=== PATIENT | female | born 1970 | race Caucasian/White ===

== ENCOUNTER 2020-06-21 12:00 | Outpatient (REF) | payer BC, SELFPAY ==
--- NOTE | ~2020-06-21 | XR_ITS ---
EXAMINATION: BILATERAL KNEE X-RAY CLINICAL INFORMATION: Pain COMPARISON: None TECHNIQUE: 4 views each knee FINDINGS: Bone alignment is normal. No fracture or dislocation is seen. Joint spaces are normal. There is no joint effusion. XR/XR knee RT 4V IMPRESSION: Normal knees.
--- NOTE | ~2020-06-21 | XR_ITS ---
EXAMINATION: BILATERAL KNEE X-RAY CLINICAL INFORMATION: Pain COMPARISON: None TECHNIQUE: 4 views each knee FINDINGS: Bone alignment is normal. No fracture or dislocation is seen. Joint spaces are normal. There is no joint effusion. XR/XR knee LT 4V IMPRESSION: Normal knees.
== END 2020-06-21 12:01 | disposition home or self-care (01) ==
LOC: HO.HMGCX 12:00
PROVIDERS: PCP Internal Medicine; Visit Provider Nurse Practitioner Family
DX: M25.562 Pain in left knee (principal); M25.561 Pain in right knee
CPT/HCPCS: 73564

== ENCOUNTER 2021-01-04 07:44 | Outpatient (REF) | payer BC, SELFPAY ==
--- NOTE | ~2021-01-04 | MM_ITS ---
EXAMINATION: MM SCREENING DIGITAL BREAST TOMOSYNTHESIS, BILATERAL CLINICAL INFORMATION: Screening. Asymptomatic. The lifetime risk of breast cancer based on the Tyrer-Cuzick Model is 19%. COMPARISON: Mammography: 02/23/2018, 02/13/2017 TECHNIQUE: Digital breast tomosynthesis is performed in both the craniocaudal and mediolateral oblique views along with computer-aided detection (CAD). Synthesized 2D images are generated from the tomosynthesis. Additional bilateral CC and bilateral MLO views are provided. FINDINGS: The breasts are almost entirely fatty (ACR BI-RADS breast composition Category a). Background stromal markings are stable. There are no significant masses, abnormal calcifications, or other abnormalities. The axilla and skin contours are unremarkable. MM/MM tomosynthesis screening BI IMPRESSION: No mammographic evidence of malignancy. ASSESSMENT: BI-RADS 1: Negative RECOMMENDATION: Routine annual mammography screening. This patient's information was entered into a reminder system with a target due date for their next mammogram.
== END 2021-01-04 07:45 | disposition home or self-care (01) ==
LOC: HO.MAMMO 07:44
PROVIDERS: Visit Provider Internal Medicine
DX: Z12.31 Encounter for screening mammogram for malignant neoplasm of breast (principal)
CPT/HCPCS: 77063; 77067

== ENCOUNTER 2021-05-07 12:24 | Outpatient (REF) | payer BC, SELFPAY ==
--- NOTE | ~2021-05-07 | XR_ITS ---
EXAMINATION: XR CHEST CLINICAL INFORMATION: Chronic cough COMPARISON: Previous chest x-ray August 2012 TECHNIQUE: 2 views of the chest were obtained. FINDINGS: No significant abnormality is noted involving the heart, lungs, mediastinum, bony thorax or soft tissues. XR/XR chest 2V IMPRESSION: Unremarkable examination.
[2021-05-07 14:07] LABS: MANUAL DIFF FLAG NO
[2021-05-07 14:13] LABS: Basophils Absolute Auto 0.1 X10*3/uL (0.0-0.2); Basophils Percent Auto 0.6 % (0-2); Eosinophils Absolute Auto 0.1 X10*3/uL (0.0-0.4); Eosinophils Percent Auto 1.4 % (0-4); Hematocrit 41.5 % (37.0-47.0); Hemoglobin 13.3 g/dl (12.0-16.0); Imm Gran Abs Auto 0.04 X10*3/uL (0.00-0.03); Imm Gran Pct Auto 0.5 % (0.0-0.4); Lymphocytes Absolute Auto 2.7 X10*3/uL (1.2-4.9); Lymphocytes Percent Auto 31.6 % (20-40); Mean Corpuscular Hemoglobin 30.1 pg (27.0-33.0); Mean Corpuscular Volume 93.9 fL (80.0-98.0); Mean Platelet Volume 8.9 fL (9.4-12.3); Monocytes Absolute Auto 0.7 X10*3/uL (0.1-1.2); Monocytes Percent Auto 8.5 % (2-11); Neutrophils Absolute Auto 4.8 x10*3/uL (2.0-8.3); Neutrophils Percent Auto 57.4 % (45-73); Platelet Count 385 X10*3/uL (160-400); Red Blood Count 4.42 X10*6/uL (4.20-5.50); Red Cell Distribution Width 12.5 % (11.0-16.0); White Blood Count 8.4 X10*3/uL (4.8-10.8)
== END 2021-05-07 12:25 | disposition home or self-care (01) ==
LOC: HO.HMGCX 12:24
PROVIDERS: PCP Internal Medicine; Visit Provider Internal Medicine
DX: R05.3 Chronic cough (principal); Z86.16 Personal history of COVID-19
CPT/HCPCS: 36415; 71046; 85025

== ENCOUNTER 2022-01-02 06:34 | Outpatient (REF) | payer BC, SELFPAY ==
[2022-01-02 12:52] LABS: Vitamin D 25-OH Total 34.8 ng/mL (>30)
[2022-01-02 13:04] LABS: Alanine Aminotransferase 43 U/L (0-31); Anion Gap 20 (12-20); Aspartate Amino Transferase 35 U/L (5-31); Blood Urea Nitrogen 21 mg/dL (9-16); Calcium 10.5 mg/dL (8.4-10.2); Carbon Dioxide 29 mmol/L (22-29); Chloride 98 mmol/L (96-108); Cholesterol 181 mg/dL; Estimated Glomerular Filt Rate 48; Glucose Fasting 116 mg/dL (60-99); HDL Cholesterol 47 mg/dL; LDL Cholesterol Calculated 96 mg/dl; Potassium 4.9 mmol/L (3.3-5.1); Sodium 142 mmol/L (135-145); Triglycerides 192 mg/dL
== END 2022-01-02 06:35 | disposition home or self-care (01) ==
LOC: HO.HMGCLDS 06:34
PROVIDERS: PCP Internal Medicine; Visit Provider Internal Medicine
DX: Z00.01 Encounter for general adult medical examination with abnormal findings (principal)
CPT/HCPCS: 36415; 80048; 80061; 82306; 84450; 84460

== ENCOUNTER 2022-01-10 07:16 | Outpatient (REF) | payer BC, SELFPAY ==
--- NOTE | ~2022-01-10 | MM_ITS ---
EXAMINATION: MM SCREENING DIGITAL BREAST TOMOSYNTHESIS, BILATERAL CLINICAL INFORMATION: Screening. Asymptomatic. The lifetime risk of breast cancer based on the Tyrer-Cuzick Model is 17%. COMPARISON: Mammography: 01/04/2021, 02/23/2018, 02/13/2017 TECHNIQUE: Digital breast tomosynthesis is performed in both the craniocaudal and mediolateral oblique views along with computer-aided detection (CAD). Synthesized 2D images are generated from the tomosynthesis. Additional bilateral CC and additional bilateral MLO views are provided. FINDINGS: The breasts are almost entirely fatty (ACR BI-RADS breast composition Category a). Background stromal markings appearing normal. Left breast shows no interval mass or developing density. Neither breast shows architectural abnormality or abnormal calcifications. Right breast has new nodule close to skin surface posterior 11:30 position just under 6 mm, possibly dermal lesion. Margins are incompletely defined. Patient will be recalled for additional imaging. MM/MM tomosynthesis screening BI IMPRESSION: Right: -New nodule posterior upper right breast, possibly dermal. Left: -No mammographic evidence of malignancy. ASSESSMENT: BI-RADS 0: Incomplete - Need Additional Imaging Evaluation RECOMMENDATION: 1. Assess for dermal lesion and obtain imaging with dermal marker if applicable. If no dermal lesion, then spot CC and spot ML views. 2. Targeted ultrasound if warranted after review of the additional views. 3. Radiology department staff will contact the patient for additional imaging. This patient's information was entered into a reminder system with a target due date for their next mammogram.
== END 2022-01-10 07:17 | disposition home or self-care (01) ==
LOC: HO.MAMMO 07:16
PROVIDERS: Visit Provider Internal Medicine
DX: Z12.31 Encounter for screening mammogram for malignant neoplasm of breast (principal)
CPT/HCPCS: 77063; 77067

== ENCOUNTER 2022-01-17 07:27 | Outpatient (REF) | payer BC, SELFPAY ==
[2022-01-17 08:01] LABS: Estimated Average Glucose 105 mg/dL; Hemoglobin A1c % 5.3 %
[2022-01-17 08:09] LABS: Anion Gap 15 (12-20); Blood Urea Nitrogen 22 mg/dL (9-16); Calcium 9.7 mg/dL (8.4-10.2); Carbon Dioxide 30 mmol/L (22-29); Chloride 101 mmol/L (96-108); Estimated Glomerular Filt Rate 54; Glucose Fasting 112 mg/dL (60-99); Potassium 4.2 mmol/L (3.3-5.1); Sodium 142 mmol/L (135-145)
== END 2022-01-17 07:28 | disposition home or self-care (01) ==
LOC: HO.LAB 07:27
PROVIDERS: PCP Internal Medicine; Visit Provider Internal Medicine
DX: E83.52 Hypercalcemia (principal); R79.89 Other specified abnormal findings of blood chemistry; R73.01 Impaired fasting glucose
CPT/HCPCS: 36415; 80048; 82330; 83036

== ENCOUNTER 2022-01-23 14:22 | Outpatient (REF) | payer BC, SELFPAY ==
--- NOTE | ~2022-01-23 | MM_ITS ---
EXAMINATION: MM DIAGNOSTIC DIGITAL BREAST TOMOSYNTHESIS, RIGHT US DIAGNOSTIC ULTRASOUND BREAST, RIGHT CLINICAL INFORMATION: Recall from screening for new nodule posterior upper outer right breast possibly dermal lesion. Family history breast cancer sister. TC score 17%. COMPARISON: Mammography: 01/10/2022, 01/04/2021 TECHNIQUE: Digital breast tomosynthesis is performed. 2D images are generated from the tomosynthesis. The following views are obtained: CC and MLO views with dermal marker. Ultrasound right breast is targeted to the palpable nodularity posterior upper outer breast using grayscale imaging and color Doppler without and with harmonics. FINDINGS: The breasts are almost entirely fatty (ACR BI-RADS breast composition Category a). The additional views confirm dermal lesion at site of focal nodular density. On clinical exam, the dermal lesion appears below the skin surface and smaller by palpation than the size noted on imaging. Therefore, ultrasound performed for further characterization. Ultrasound demonstrates the intradermal lesion at site of palpable concern measuring 0.5 cm in size, hypoechoic, circumscribed margins, increased through-transmission of sound, and no associated color flow. There is claw sign with the deep dermis. No visible stalk to skin surface. Results are discussed with the patient at time of visit. The finding on mammography corresponds to an intradermal lesion 0.5 cm size, likely sebaceous cyst/epidermal cyst. If increasing, it would be amenable to simple surgical excision. MM/MM tomosynthesis added views R IMPRESSION: -Intradermal lesion at site of palpable concern measuring 0.5 cm, likely sebaceous cyst/epidermal cyst. ASSESSMENT: BI-RADS 2: Benign RECOMMENDATION: 1. Patient may be managed based on the clinical impression. If the intradermal lesion is increasing, it would be amenable to simple surgical excision. 2. Otherwise, routine annual screening mammography. This patient's information was entered into a reminder system with a target due date for their next mammogram.
== END 2022-01-23 14:23 | disposition home or self-care (01) ==
LOC: HO.MAMMO 14:22
PROVIDERS: PCP Internal Medicine; Visit Provider Internal Medicine
DX: N63.11 Unspecified lump in the right breast, upper outer quadrant (principal)
CPT/HCPCS: 76642; 77061; 77065

== ENCOUNTER 2022-04-02 13:49 | Outpatient (AMB) | payer BC, SELFPAY ==
[2022-04-02 13:59] VITALS: BP 125/70; PULSE 92; O2SAT 98
--- NOTE | 2022-04-02 13:59 | A.OFFPC_ITS ---
Vital Signs 04/02/22 13:59 Weight 278 lb BP 125/70 Blood Pressure Location Rt brachial Position Sitting Pulse 92 Pulse Source Pulse Oximeter Pulse Oximetry (%) 98 Oxygen Delivery Method Room Air Intake Visit Reasons: annual PE. 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 colonoscopy due HPI Details 52-year-old lady here today for physical exam. She has hypertension, currently on lisinopril 5 mg daily and hydrochlorothiazide 12.5 mg daily, blood pressure today is not at goal of less than 130/80.. She takes rosuvastatin 20 mg daily and Norco 3 fatty acid supplements for her dyslipidemia. She is up-to-date with her screening mammogram done move January 2022 and had Cologuard screening done which came back negative June 2021. [facility] Medical History (Updated 04/02/22 @ 14:50 by Bell Reddy MD) Bilateral anterior knee pain COVID-19 vaccine dose declined Dyslipidemia Essential hypertension History of anxiety disorder History of COVID-19 Impaired fasting glucose Mild intermittent asthma Morbid obesity with BMI of 45.0-49.9, adult Persistent cough Surgical History (Updated 04/14/21 @ 00:37 by Bell Reddy MD) History of hemorrhoidectomy History of incision and drainage History of skin cancer History of surgery Family History (Updated 04/14/21 @ 00:40 by Bell Reddy MD) Father Myocardial infarction, Onset Age: 49 Emphysema lung Mother Essential hypertension Hyperlipidemia Sister Breast cancer, Onset Age: 58 Maternal Aunt Breast cancer Social History Housing: House Patient Tobacco Use Status: Never used Tobacco e-Cigarette/Vaping Use: Never Used service: No Current occupational status: employed Female Reproductive History Menstrual History of abnormal pap smear: No Other: last pap smear 03/2021 per pt done bt Dr Char Rodriguez Questionnaire PHQ-9 Over the last 2 weeks, how often have you been bothered by any of the following problems? 1. Little interest or pleasure in doing things: not at all 2. Feeling down, depressed, or hopeless: not at all 3. Trouble falling or staying asleep, or sleeping too much: not at all 4. Feeling tired or having little energy: not at all 5. Poor appetite or overeating: not at all 6. Feeling bad about yourself - or that you are a failure or have let yourself or your family down: not at all 7. Trouble concentrating on things, such as reading the newspaper or watching television: not at all 8. Moving or speaking so slowly that other people could have noticed. Or the opposite - being so fidgety or restless that you have been moving around a lot more than usual: not at all 9. Thoughts that you would be better off or of hurting yourself in some way: not at all Total score: 0 Source: Developed by Drs. Herve Wise, Andra Steinberg, Baldemar Michaud and colleagues, with an educational elham from [employer]. Thrive Questionnaire Date Thrive assessed: 04/02/22 I am a: Patient What is your living situation today?: I have a steady place to live Within the past 12 months, did the food you bought not last and you didn't have the money to get more?: Never true Within the past 12 months, did you worry whether your food would run out before you got money to buy more?: Never true Do you have trouble paying for medicines?: No Do you have trouble getting transportation to medical appointments?: No Do you have trouble paying your heating and electricity bill?: No Do you have trouble taking care of your child, family member or friend?: No Do you have trouble with day-to-day activities such as bathing, preparing meals, shopping, managing finances, etc.?: No Are you currently unemployed and looking for a job?: No Are you interested in more education?: No NATASHA-7 AMB Questionnaire NATASHA-7 Date NATASHA - 7 assessed: 04/02/22 Feeling nervous, anxious, or on edge: 0 = Not at all Not being able to stop or control worryin = Not at all Worrying too much about different things: 0 = Not at all Trouble relaxin = Not at all Being so restless that it is hard to sit still: 0 = Not at all Becoming easily annoyed or irritable: 0 = Not at all Feeling afraid as if something awful might happen: 0 = Not at all Total NATASHA-7 score (0-4 normal; 5-9 mild; 10-14 moderate; 15-21 severe): 0 Source: Developed by Drs. Herve Wise, Andra Steinberg, Baldemar Michaud and colleagues, with an educational elham from [employer]. Physical exam (Primary Care) Vital Signs: Last Vital Signs Pulse 92 04/02/22 13:59 BP 125/70 04/02/22 13:59 Pulse Ox 98 04/02/22 13:59 Oxygen Delivery Method Room Air 04/02/22 13:59 Tobacco/Smoking Status: Tobacco use Status Tobacco use date assessed 04/02/22 04/02/22 14:11 Patient Tobacco Use Status Never used Tobacco 04/02/22 14:00 e-Cigarette/Vaping Use Never Used 04/02/22 14:00 PHQ-9: PHQ-9 Score PHQ-9: Total score 0 04/02/22 14:24 Thrive Assessment: Date of Thrive Assessment Date Thrive assessed 04/02/22 04/02/22 14:11 Office Procedures Flu Questionnaire Does the patient have a severe egg allergy?: No Does the patient have severe life threatening allergies?: No Does the patient have a fever or illness today?: No Has the patient ever had Guillain-Dover Syndrome?: No Has the patient ever had any past reaction to a flu shot?: No Immunizations flu vacc [id number] 6mos up(PF) Performing Provider: Bell Reddy MD Administered by: Caty Santo RN on 04/02/22 14:59 Dose Route Admin Location Lot Number Expiration Date NDC Egg Sorter 0.5 mL IM Right Deltoid [id number] 10/02/22 [id number] [employer] VIS Given Date VIS Provided VIS Publication Date 04/02/22 Single Vaccine 20 Eligibility Eligibility Date Funding Source Not [facility] Eligible 04/02/22 Private Assessment and Plan Assessment & Plan (1) Impaired fasting glucose: Code(s): R73.01 - Impaired fasting glucose (2) Essential hypertension: Code(s): I10 - Essential (primary) hypertension (3) Dyslipidemia: Code(s): E78.5 - Hyperlipidemia, unspecified (4) Morbid obesity with BMI of 45.0-49.9, adult: Code(s): E66.01 - Morbid (severe) obesity due to excess calories; Z68.42 - Body mass index [BMI] 45.0-49.9, adult (5) Mild intermittent asthma: Code(s): J45.20 - Mild intermittent asthma, uncomplicated (6) COVID-19 vaccine dose declined: Code(s): Z28.21 - Immunization not carried out because of patient refusal (7) Annual visit for general adult medical examination with abnormal findings: Code(s): Z00.01 - Encounter for general adult medical examination with abnormal findings Orders: Orders Comprehensive [employer] Panel Fast Today E78.5 - Hyperlipidemia, unspecified, I10 - Essential (primary) hypertension, R73.01 - Impaired fasting glucose Hemoglobin A1c Today E78.5 - Hyperlipidemia, unspecified, I10 - Essential (primary) hypertension, R73.01 - Impaired fasting glucose Lipid Panel Today E78.5 - Hyperlipidemia, unspecified, I10 - Essential (primary) hypertension, R73.01 - Impaired fasting glucose Vitamin D 25-OH Total Today E78.5 - Hyperlipidemia, unspecified, I10 - Essential (primary) hypertension, R73.01 - Impaired fasting glucose Influenza [id number] Immunization Today Z23 - Encounter for immunization Coding Level of Care Code Est Pt Prev Care 40-64y(11537) Diagnoses Impaired fasting glucose R73.01 Essential hypertension I10 Dyslipidemia E78.5 Morbid obesity with BMI of 45.0-49.9, adult E66.01; Z68.42 Mild intermittent asthma J45.20 COVID-19 vaccine dose declined Z28.21 Annual visit for general adult medical examination with abnormal findings Z00.01
== END 2022-04-02 14:57 | disposition home or self-care (01) ==
LOC: HO.HMGC 13:49
PROVIDERS: PCP Internal Medicine; Visit Provider Internal Medicine
DX: R73.01 Impaired fasting glucose (principal); I10 Essential (primary) hypertension; E78.5 Hyperlipidemia, unspecified; E66.01 Morbid (severe) obesity due to excess calories; Z68.42 Body mass index [BMI] 45.0-49.9, adult; J45.20 Mild intermittent asthma, uncomplicated; Z28.21 Immunization not carried out because of patient refusal; Z00.01 Encounter for general adult medical examination with abnormal findings
CPT/HCPCS: 99499

== ENCOUNTER 2022-06-27 07:28 | Outpatient (REF) | payer OTHER, SELFPAY ==
[2022-06-27 08:27] LABS: Estimated Average Glucose 105 mg/dL; Hemoglobin A1c % 5.3 %
[2022-06-27 08:57] LABS: Alanine Aminotransferase 28 U/L (0-31); Albumin Level 4.5 g/dL (3.5-5.0); Alkaline Phosphatase 59 U/L (39-117); Anion Gap 15 (12-20); Aspartate Amino Transferase 24 U/L (5-31); Bilirubin Total 0.8 mg/dL (0.0-1.0); Blood Urea Nitrogen 22 mg/dL (9-16); Carbon Dioxide 29 mmol/L (22-29); Chloride 104 mmol/L (96-108); Cholesterol 165 mg/dL; Estimated Glomerular Filt Rate > 60; Glucose Fasting 109 mg/dL (60-99); HDL Cholesterol 48 mg/dL; LDL Cholesterol Calculated 93 mg/dl; Potassium 4.5 mmol/L (3.3-5.1); Sodium 143 mmol/L (135-145); Total Protein 7.1 g/dL (6.5-8.0); Triglycerides 120 mg/dL
[2022-06-27 09:02] LABS: Vitamin D 25-OH Total 37.4 ng/mL (>30)
== END 2022-06-27 07:29 | disposition home or self-care (01) ==
LOC: HO.LAB 07:28
PROVIDERS: PCP Internal Medicine; Visit Provider Internal Medicine
DX: I10 Essential (primary) hypertension (principal); R73.01 Impaired fasting glucose; E78.5 Hyperlipidemia, unspecified
CPT/HCPCS: 36415; 80053; 80061; 82306; 83036

== ENCOUNTER 2022-09-01 13:37 | Outpatient (AMB) | payer OTHER, SELFPAY ==
--- NOTE | 2022-09-01 13:38 | A.OFFPC_ITS ---
Vital Signs 09/01/22 13:44 Height 5 ft 5 in Weight 271 lb BMI 45.1 BP 120/68 Blood Pressure Location Rt brachial Position Sitting Pulse 97 Pulse Source Pulse Oximeter Pulse Oximetry (%) 96 Oxygen Delivery Method Room Air Intake Visit Reasons: Recheck breast lump/infection Intake Note: Pt is here today for a recheck Rt breast abscess/infection: Pt was seen on 08/29 thru our [place] Rt breast was marked and the redness got larger Allergies No Known Allergies Allergy (Verified 05/30/23 18:44) Medication List - Last Reconciled 09/01/22 by Bell Reddy MD albuterol sulfate 90 mcg/actuation (ProAir HFA) 2 puffs inhalation Q6H PRN cephalexin 500 mg PO QID 7 days hydrochlorothiazide 12.5 mg PO QAM lisinopril 5 mg PO DAILY omega-3 fatty acids (Fish Oil Concentrate) 1,000 mg PO DAILY rosuvastatin 20 mg PO DAILY Tobacco use date assessed: 09/01/22 HPI Recheck breast lump/infection HPI Details 52-year-old lady here today for follow-u p regarding right breast abscess, was seen at the walk-in August 29 and started on cephalexin 500 mg every 6 hours for 7 days. Patient states that abscess still present, slightly smaller in size, but still painful to touch. Denies any accompanying fever, up-to-date with her screening mammogram [facility] Medical History COVID-19 vaccine dose declined Impaired fasting glucose Persistent cough History of COVID-19 History of anxiety disorder Mild intermittent asthma Morbid obesity with BMI of 45.0-49.9, adult Dyslipidemia Essential hypertension Bilateral anterior knee pain Surgical History History of skin cancer History of incision and drainage History of hemorrhoidectomy History of surgery Family History Father Myocardial infarction, Onset Age: 49 Emphysema lung Mother Essential hypertension Hyperlipidemia Sister Breast cancer, Onset Age: 58 Maternal Aunt Breast cancer Social History Housing: House Patient Tobacco Use Status: Never used Tobacco e-Cigarette/Vaping Use: Never Used service: No Current occupational status: employed Cognitive needs: No Hearing needs: No Vision needs: No Questionnaire Thrive Questionnaire Date Thrive assessed: 04/02/22 AUDIT C Alcohol Use Questionnaire (AUDIT-C) 1. How often do you have a drink containing alcohol?: Never Total Score: 0 NATASHA-7 AMB Questionnaire NATASHA-7 Date NATASHA - 7 assessed: 04/02/22 Source: Developed by Drs. Herve Wise, Andra Steinberg, Baldemar Michaud and colleagues, with an educational elham from [employer]. Review of Systems Const Denies fever(s) ENT Denies nasal congestion and Denies sore throat Card Denies chest pain, Denies lightheadedness, Denies palpitations and Denies dyspnea Resp Denies chest congestion, Denies cough, Denies dyspnea and Denies wheezing GI Denies abdominal pain, Denies change in bowel habits and Denies heartburn Musc Reports no additional complaints Skin/Breast Reports as per HPI Endo Denies polydipsia, Denies polyuria and Denies palpitations Hong/Lymph Denies easy bruising Aller/Immun Denies seasonal rhinorrhea and Denies wheezing Physical exam (Primary Care) Vital Signs: Last Vital Signs Pulse 97 09/01/22 13:44 BP 120/68 09/01/22 13:44 Pulse Ox 96 09/01/22 13:44 Oxygen Delivery Method Room Air 09/01/22 13:44 BMI result Body Mass Index 45.1 Tobacco/Smoking Status: Tobacco use Status Tobacco use date assessed 09/01/22 09/01/22 13:41 Patient Tobacco Use Status Never used Tobacco 09/01/22 13:38 e-Cigarette/Vaping Use Never Used 09/01/22 13:38 Thrive Assessment: Date of Thrive Assessment Date Thrive assessed 04/02/22 09/01/22 13:38 Const General: no acute distress and alert Neck Neck: Yes full ROM and Yes no lymphadenopathy Chest Other: Slightly raised erythematous lesion on the upper outer quadrant of the skin of the right breast whi measures approximately 4 x 3 cm. Resp Effort & Inspection: normal respiratory effort and able to speak in complete sentences Auscultation: clear to auscultation bilaterally Cardio Jugular venous distension: no JVD Rate: regular rate Rhythm: regular rhythm Heart sounds: S1 normal heart sound present and S2 normal heart sound present Assessment and Plan Assessment & Plan (1) Abscess of right breast unrelated to or : Code(s): N61.1 - Abscess of the breast and nipple Plan: Referred to general surgery for further evaluation and management Orders: Referrals General Surgery Referral N61.1 - Abscess of the breast and nipple Medications: Refilled lisinopril 5 mg PO DAILY 90 tabs 3RF Coding Level of Care Code Est Pt Level 3 (53588) Diagnoses Abscess of right breast unrelated to or N61.1
[2022-09-01 13:44] VITALS: BP 120/68; PULSE 97; O2SAT 96; BMI 45.1
== END 2022-09-01 14:18 | disposition home or self-care (01) ==
LOC: HO.HMGC 13:37
PROVIDERS: PCP Internal Medicine; Visit Provider Internal Medicine
DX: N61.1 Abscess of the breast and nipple (principal)
CPT/HCPCS: 99499

== ENCOUNTER → 2022-09-08 11:07 | Outpatient (BNVA) | payer OTHER, SELFPAY | PROVIDERS: PCP Internal Medicine; Referring Provider Internal Medicine; Visit Provider Surgery | DX: N61.1 Abscess of the breast and nipple (principal) | CPT/HCPCS: 10060; 10061 ==

== ENCOUNTER 2022-09-08 12:15 | Outpatient (REF) | payer OTHER, SELFPAY | END 2022-09-08 12:16 | disposition home or self-care (01) | LOC: HO.LNP 12:15 | PROVIDERS: Visit Provider Surgery | DX: N61.1 Abscess of the breast and nipple (principal); Z79.899 Other long term (current) drug therapy | CPT/HCPCS: 10060; 87070; 87077; 87186; 87205 ==

== ENCOUNTER → 2022-09-09 08:25 | Outpatient (BNVA) | payer OTHER, SELFPAY | PROVIDERS: PCP Internal Medicine; Visit Provider Surgery ==

== ENCOUNTER → 2022-09-10 08:28 | Outpatient (BNVA) | payer OTHER, SELFPAY | PROVIDERS: PCP Internal Medicine; Visit Provider Surgery ==

== ENCOUNTER → 2022-09-11 08:12 | Outpatient (BNVA) | payer OTHER, SELFPAY | PROVIDERS: PCP Internal Medicine; Visit Provider Surgery ==

== ENCOUNTER → 2022-09-18 08:03 | Outpatient (BNVA) | payer OTHER, SELFPAY | PROVIDERS: PCP Internal Medicine; Visit Provider Surgery | DX: N61.1 Abscess of the breast and nipple (principal) ==

== ENCOUNTER 2022-12-08 08:53 | Outpatient (AMB) | payer OTHER, SELFPAY ==
[2022-12-08 09:00] VITALS: BP 146/74; PULSE 97; BMI 45.1
--- NOTE | 2022-12-08 09:00 | MHC.OFFVIS ---
Intake Vital Signs 12/08/22 09:00 Height 5 ft 5 in Weight 271 lb BMI 45.1 BP 146/74 H Blood Pressure Location Rt brachial Position Sitting Pulse 97 Intake Visit Reasons: excision cyst right breast Intake Note: Patient here for exc of cyst on Rt breast. 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 She had 90 of all very large complex abscess here several months ago. Now presents for elective excision. Risks, benefits and alternatives excision of right upper outer breast soft tissue sebaceous cyst/mass were reviewed with the patient and included but not limited to bleeding, infection, recurrence, numbness, pain, scarring the patient wished to proceed. All questions were answered. REPLACED BY [facility] Medical History Bilateral anterior knee pain COVID-19 vaccine dose declined Dyslipidemia Essential hypertension History of anxiety disorder History of COVID-19 Impaired fasting glucose Mild intermittent asthma Morbid obesity with BMI of 45.0-49.9, adult Persistent cough Surgical History History of hemorrhoidectomy History of incision and drainage History of skin cancer History of surgery Family History Father Myocardial infarction, Onset Age: 49 Emphysema lung Mother Essential hypertension Hyperlipidemia Sister Breast cancer, Onset Age: 58 Maternal Aunt Breast cancer Social History Housing: House Patient Tobacco Use Status: Never used Tobacco e-Cigarette/Vaping Use: Never Used service: No Current occupational status: employed Cognitive needs: No Hearing needs: No Vision needs: No Physical Exam Vital Signs: Last Vital Signs Pulse 97 12/08/22 09:00 BP 146/74 H 12/08/22 09:00 BMI result Body Mass Index 45.1 Office Procedures Excision Details: After appropriate positioning, patient under 1% lidocaine and Betadine prep of the upper outer quadrant right breast area. A transverse by elliptical incision encompassing the prior scar from the previous incision drainage site of the infected sebaceous cyst was uneventfully performed. Specimen measured approximately 3 x 3 cm. Specimen sent to pathology. Wound was irrigated, secured hemostasis, and closed using running subcuticular 3-0 Vicryl suture followed by Steri-Strips and sterile dressings. Patient tolerated procedure well. [id number]-juzge/arms/legs 2.1-3cm Procedure code (CPT) selection complete Office Meds lidocaine-epinephrine 1 %-1:100,000 Performing Provider: Kavin Kaplan MD Administered by: Kavin Kalpan MD on 12/08/22 09:29 Dose Route Admin Location Lot Number Expiration Date NDC Roller Painter 20 mL Infiltration Assessment & Plan Assessment & Plan (1) Abscess of right breast unrelated to or : Comment: Patient has been given local instructions as well as dressing changes which will be performed to the office. She will be given antibiotics, analgesics, and will see me as directed or p.r.n. Code(s): N61.1 - Abscess of the breast and nipple (2) Sebaceous cyst: Code(s): L72.3 - Sebaceous cyst Plan Patient has been given local instructions, and will follow-up p.r.n.. Orders: Orders AMB Excision Today N61.1 - Abscess of the breast and nipple Medications: New hydrocodone-acetaminophen 5-325 mg Partial Fill upon patient request. 1 tab PO Q4-6H PRN 14 tabs 0RF pain Coding Level of Care Code Est Pt Level 4 (76846) Global (62945) Diagnoses Abscess of right breast unrelated to or N61.1 Sebaceous cyst L72.3 CPT Codes Trunk/Arms/Legs - CPT: 55831-amsfb/arms/legs 2.1-3cm ([id number])
== END 2022-12-08 09:38 | disposition home or self-care (01) ==
PROVIDERS: PCP Internal Medicine; Visit Provider Surgery
DX: N61.1 Abscess of the breast and nipple (principal); L72.3 Sebaceous cyst; Z48.89 Encounter for other specified surgical aftercare
CPT/HCPCS: 11403; 99214

== ENCOUNTER 2022-12-08 08:53 | Outpatient (REF) | payer OTHER, SELFPAY | END 2022-12-08 08:54 | disposition home or self-care (01) | LOC: HO.LNP 08:53 | PROVIDERS: PCP Internal Medicine; Visit Provider Surgery | DX: L72.3 Sebaceous cyst (principal); Z79.899 Other long term (current) drug therapy | CPT/HCPCS: 11403; 88304; 88305 ==

== ENCOUNTER 2022-12-15 09:03 | Outpatient (AMB) | payer OTHER, SELFPAY ==
--- NOTE | 2022-12-15 09:15 | A.OFFVIS_ITS ---
Intake Vital Signs 12/15/22 09:20 Height 5 ft 5 in Weight 271 lb BMI 45.1 BP 135/72 Blood Pressure Location Rt brachial Position Sitting Pulse 89 Intake Visit Reasons: s/p cyst right breast Intake Note: Patient here s/p exc cyst on sup Rt breast. Patient reports some bruising. Site healing well. Denies pain, oozing or itch. Wool Shearer Required: No Accompanied by: Self / Same As Patient Allergies No Known Allergies Allergy (Verified 12/15/22 09:21) HPI HPI Comments History of Present Illness Details Patient presents for follow-up. She has no wound issues or complaints. Pathology is benign. [facility] Medical History COVID-19 vaccine dose declined Impaired fasting glucose Persistent cough History of COVID-19 History of anxiety disorder Mild intermittent asthma Morbid obesity with BMI of 45.0-49.9, adult Dyslipidemia Essential hypertension Bilateral anterior knee pain Surgical History History of skin cancer History of incision and drainage History of hemorrhoidectomy History of surgery Family History Father Myocardial infarction, Onset Age: 49 Emphysema lung Mother Essential hypertension Hyperlipidemia Sister Breast cancer, Onset Age: 58 Maternal Aunt Breast cancer Social History Housing: House Patient Tobacco Use Status: Never used Tobacco e-Cigarette/Vaping Use: Never Used service: No Current occupational status: employed Cognitive needs: No Hearing needs: No Vision needs: No Physical Exam Vital Signs: Last Vital Signs Pulse 89 12/15/22 09:20 BP 135/72 12/15/22 09:20 BMI result Body Mass Index 45.1 Chest Other: Wound is clean dry and intact healing uneventfully. Assessment & Plan Assessment & Plan (1) Sebaceous cyst: Code(s): L72.3 - Sebaceous cyst Plan Patient has been given local instructions, and will follow-up p.r.n.. She gets mammograms annually in January and is followed by her medical doctor who does annual breast exams. She is also encouraged to do self-breast exams. Coding Level of Care Code Global (75992) Diagnoses Sebaceous cyst L72.3
[2022-12-15 09:20] VITALS: BP 135/72; PULSE 89; BMI 45.1
== END 2022-12-15 09:28 | disposition home or self-care (01) ==
PROVIDERS: PCP Internal Medicine; Visit Provider Surgery
DX: L72.3 Sebaceous cyst (principal)
CPT/HCPCS: 99024

== ENCOUNTER → 2022-12-15 09:03 | Outpatient (BNVA) | payer OTHER, SELFPAY | PROVIDERS: PCP Internal Medicine; Visit Provider Surgery | DX: N61.1 Abscess of the breast and nipple (principal) ==

== ENCOUNTER 2023-01-16 07:27 | Outpatient (REF) | payer OTHER, SELFPAY | END 2023-01-16 07:28 | disposition home or self-care (01) | LOC: HO.MAMMO 07:27 | PROVIDERS: PCP Internal Medicine; Visit Provider Internal Medicine | DX: Z12.31 Encounter for screening mammogram for malignant neoplasm of breast (principal) | CPT/HCPCS: 77063; 77067 ==

== ENCOUNTER → 2023-01-16 07:30 | Outpatient (BNV) | payer OTHER, SELFPAY | PROVIDERS: PCP Internal Medicine; Visit Provider Radiology Diagnostic Radiology | DX: Z12.31 Encounter for screening mammogram for malignant neoplasm of breast (principal) | CPT/HCPCS: 77063; 77067 ==

== ENCOUNTER 2023-12-08 08:45 | Outpatient (AMB) | payer OTHER, SELFPAY ==
--- NOTE | 2023-12-08 08:53 | A.OFFVIS_ITS ---
Vital Signs 12/08/23 08:54 Height 5 ft 5 in Weight 279 lb 2 oz BMI 46.4 BP 122/80 Blood Pressure Location Rt brachial Position Sitting Pulse 92 Pulse Source Pulse Oximeter Pulse Oximetry (%) 97 Oxygen Delivery Method Room Air Intake Visit Reasons: PE Allergies No Known Allergies Allergy (Verified 12/08/23 08:56) [facility] History COVID-19 vaccine dose declined Impaired fasting glucose Persistent cough History of COVID-19 History of anxiety disorder Mild intermittent asthma Morbid obesity with BMI of 45.0-49.9, adult Dyslipidemia Essential hypertension Bilateral anterior knee pain Surgical History History of skin cancer History of incision and drainage History of hemorrhoidectomy History of surgery Family History Father Myocardial infarction, Onset Age: 49 Emphysema lung Mother Essential hypertension Hyperlipidemia Sister Breast cancer, Onset Age: 58 Maternal Aunt Breast cancer Social History Housing: House Patient Tobacco Use Status: Never used Tobacco e-Cigarette/Vaping Use: Never Used service: No Current occupational status: employed Cognitive needs: No Hearing needs: No Vision needs: No Female Reproductive History Menstrual Date of Mammogram: 01/16/23 History of abnormal mammogram: No Coding
[2023-12-08 08:54] VITALS: BP 122/80; PULSE 92; O2SAT 97; BMI 46.4
--- NOTE | 2023-12-08 08:59 | MHC.PC.OV ---
Vital Signs 12/08/23 08:54 Height 5 ft 5 in Weight 279 lb 2 oz BMI 46.4 BP 122/80 Blood Pressure Location Rt brachial Position Sitting Pulse 92 Pulse Source Pulse Oximeter Pulse Oximetry (%) 97 Oxygen Delivery Method Room Air Intake Visit Reasons: PE Allergies No Known Allergies Allergy (Verified 12/08/23 09:37) Medication List - Last Reconciled 12/08/23 by Bell Reddy MD albuterol sulfate 90 mcg/actuation 2 puffs inhalation Q6H PRN hydrochlorothiazide 12.5 mg PO QAM lisinopril 5 mg PO DAILY multivit with min-folic acid 80 mcg (Centrum Adult 50 Plus) 1 tab PO DAILY omega-3 fatty acids (Fish Oil Concentrate) 1,000 mg PO DAILY rosuvastatin 20 mg PO DAILY Tobacco use date assessed: 09/01/22 HPI PE HPI Details 53-year-old lady with past medical history significant for hypertension, hyperlipidemia, mild intermittent asthma, impaired fasting glucose, and obesity, here today for a physical exam. She is up-to-date with her cervical cancer screening and pelvic exam, sees Dr. Char Rodriguez. She is up-to-date with her screening mammogram , due again this January, already has an appointment set up. Had a negative Cologuard test done in 2021. Has been having intermittent episodes of wheezing and bronchospasm usually when she has a cold or when she does a lot of dusting. Needs a refill on her ProAir inhaler which she uses as needed Blood pressure stable and controlled on present treatment, has been compliant with taking her medications, but not so much with diet and does not get any regular exercise. [facility] Medical History COVID-19 vaccine dose declined Impaired fasting glucose History of COVID-19 History of anxiety disorder Mild intermittent asthma Morbid obesity with BMI of 45.0-49.9, adult Dyslipidemia Essential hypertension Surgical History History of skin cancer History of incision and drainage History of hemorrhoidectomy History of surgery Family History Father Myocardial infarction, Onset Age: 49 Emphysema lung Mother Essential hypertension Hyperlipidemia Sister Breast cancer, Onset Age: 58 Maternal Aunt Breast cancer Social History Housing: House Patient Tobacco Use Status: Never used Tobacco e-Cigarette/Vaping Use: Never Used service: No Current occupational status: employed Cognitive needs: No Hearing needs: No Vision needs: No Questionnaire PHQ-9 Over the last 2 weeks, how often have you been bothered by any of the following problems? 1. Little interest or pleasure in doing things: not at all 2. Feeling down, depressed, or hopeless: not at all 3. Trouble falling or staying asleep, or sleeping too much: not at all 4. Feeling tired or having little energy: not at all 5. Poor appetite or overeating: not at all 6. Feeling bad about yourself - or that you are a failure or have let yourself or your family down: not at all 7. Trouble concentrating on things, such as reading the newspaper or watching television: not at all 8. Moving or speaking so slowly that other people could have noticed. Or the opposite - being so fidgety or restless that you have been moving around a lot more than usual: not at all 9. Thoughts that you would be better off or of hurting yourself in some way: not at all Total score: 0 Depression Screening Interpretation: Negative Depression Screening Done: Yes 66827 - PHQ-9 Billing: Yes Source: Developed by Drs. Herve Wise, Andra Steinberg, Baldemar Michaud and colleagues, with an educational elham from [employer]. Thrive Questionnaire Date Thrive assessed: 12/08/23 I am a: Patient What is your living situation today?: I have a steady place to live Within the past 12 months, did the food you bought not last and you didn't have the money to get more?: I choose not to answer this question Within the past 12 months, did you worry whether your food would run out before you got money to buy more?: I choose not to answer this question Do you have trouble paying for medicines?: No Do you have trouble getting transportation to medical appointments?: No Do you have trouble paying your heating and electricity bill?: No Do you have trouble taking care of your child, family member or friend?: No Do you have trouble with day-to-day activities such as bathing, preparing meals, shopping, managing finances, etc.?: No Are you currently unemployed and looking for a job?: No Are you interested in more education?: No Please select the resources that you would like help with: None Currently or been in a relationship where the following occur: I choose not to answer THRIVE Score: 0 AUDIT C Alcohol Use Questionnaire (AUDIT-C) 1. How often do you have a drink containing alcohol?: Never 3. How often do you have six or more drinks on one occasion?: Never Total Score: 0 NATASHA-7 AMB Questionnaire NATASHA-7 Date NATASHA - 7 assessed: 12/08/23 Feeling nervous, anxious, or on edge: 0 = Not at all Not being able to stop or control worryin = Not at all Worrying too much about different things: 0 = Not at all Trouble relaxin = Not at all Being so restless that it is hard to sit still: 0 = Not at all Becoming easily annoyed or irritable: 0 = Not at all Feeling afraid as if something awful might happen: 0 = Not at all Total NATASHA-7 score (0-4 normal; 5-9 mild; 10-14 moderate; 15-21 severe): 0 Source: Developed by Drs. Herve Wise, Andra Steinberg, Baldemar Michaud and colleagues, with an educational elham from [employer]. NATASHA-7 Assessment Billing NATASHA-7 Assessment Tool: NATASHA-7 Assessment 72982 Review of Systems Const Reports no additional complaints and Reports weight gain Eyes Details: Up-to-date with her eye exam, goes to [facility] Reports no additional complaints ENT Denies nasal congestion and Denies sore throat Card Denies chest pain, Denies lightheadedness, Denies palpitations and Denies dyspnea Resp Denies chest congestion, Denies cough and Denies dyspnea GI Denies abdominal pain, Denies change in bowel habits and Denies heartburn Denies nipple discharge Musc Reports no additional complaints Skin/Breast Denies breast pain, Denies breast mass, Denies change in breast shape, Denies nipple discharge and Denies rash Neuro Reports no additional complaints Psych Reports no additional complaints Endo Denies polydipsia, Denies polyuria and Denies palpitations Hong/Lymph Denies easy bruising Aller/Immun Reports as per HPI and Denies seasonal rhinorrhea Physical exam (Primary Care) Vital Signs: Last Vital Signs Pulse 92 12/08/23 08:54 BP 122/80 12/08/23 08:54 Pulse Ox 97 12/08/23 08:54 Oxygen Delivery Method Room Air 12/08/23 08:54 BMI result Body Mass Index 46.4 Tobacco/Smoking Status: Tobacco use Status Tobacco use date assessed 09/01/22 12/08/23 09:00 Patient Tobacco Use Status Never used Tobacco 12/08/23 09:00 e-Cigarette/Vaping Use Never Used 12/08/23 09:00 PHQ-9: PHQ-9 Score PHQ-9: Total score 0 12/08/23 09:40 Depression Screening Interpretation: Negative Thrive Assessment: Date of Thrive Assessment Date Thrive assessed 12/08/23 12/08/23 09:00 Currently or been in a relationship where the following occur: I choose not to answer Advance Care Planning discussion: Completed/Scanned Date of discussion: 12/08/23 Who was present: Patient Forms completed: Health Care Proxy Time spent: 16-45 minutes Actual minutes spent: 16 Const General: no acute distress, alert and Physically active Nutritional Appearance: obese Orientation/consciousness: patient oriented x3 HENMT Head: Yes normocephalic Ears: hearing grossly normal bilaterally and EAC's normal General nose exam: Normal external nose present Face and sinus: Yes face symmetric Mouth: Normal oral and palatal mucosa present, oropharynx normal and moist mucous membranes Eyes General: appearance normal, both eyes and all related structures Conjunctivae: conjunctivae normal Sclerae: sclerae normal Pupils: Equal, round and reactive pupils present EOM: EOMs intact bilaterally Neck Other: Nonpalpable thyroid Neck: Yes full ROM and Yes no lymphadenopathy Chest Other: Superficial erythematous linear lesion on upper aspect of left measuring approximately 0.5 cm Chest palpation & inspection: normal inspection of the chest and normal palpation of entire chest wall Breast/axilla palpation: normal palpation of the breasts Resp Effort & Inspection: normal respiratory effort and able to speak in complete sentences Auscultation: clear to auscultation bilaterally Cardio Jugular venous distension: no JVD Rate: regular rate Rhythm: regular rhythm Heart sounds: S1 normal heart sound present and S2 normal heart sound present GI Inspection: Yes obesity Palpation (GI): Soft to palpation, nontender, no guarding and no masses Auscultation: normal bowel sounds Other: Currently sees Dr. Char Rodriguez General: Yes Bimanual renal exam normal bilaterally and Yes no CVA tenderness Back/Spine/Pelvis Back: no CVA tenderness and No back tenderness Skin General skin exam: no rashes or lesions noted Neuro General: patient oriented x3 Cranial nerves: Yes Equal, round and reactive pupils present Extrem General: Yes normal to inspection, Yes full ROM, Yes no joint enlargement, Yes no pedal edema, Yes no calf tenderness and Yes normal gait Psych Appearance: grossly normal and well kempt Mental Status: mental status grossly normal Speech and movement: Normal speech and movement present Affect: normal affect Attitude: cooperative Thought process: Normal thought process present Thought content: Normal thought content present Assessment and Plan Assessment & Plan (1) Annual visit for general adult medical examination with abnormal findings: Code(s): Z00.01 - Encounter for general adult medical examination with abnormal findings Plan: Will check appropriate labs. Recommended dental visit every 6 months and regular eye exams, at least every 2 years. Take adequate calcium in diet and vitamin-D 3 at 2000 IU per cap once a day, in addition to weight-bearing exercises to help maintain good muscle tone and weight control. Instructed to do self-breast exam, and recommended to get yearly mammogram, already has an appointment set up for her mammogram next month. Sees Dr. Char Rodriguez for her routine pelvic exam and cervical cancer screening. Up-to-date with her colon cancer screening, had a negative Cologuard done in 2021 due again in 2024. (2) Essential hypertension: Code(s): I10 - Essential (primary) hypertension Plan: Blood pressure at goal of less than 130/80. Continue with current dose of lisinopril hydrochlorothiazide. Reinforced importance of following a low sodium diet, getting regular exercise, and lowering stress levels. (3) Dyslipidemia: Code(s): E78.5 - Hyperlipidemia, unspecified Plan: Fasting lipid panel ordered today. Continue with low-cholesterol diet, getting regular exercise at least 30 minutes 3 to 4 times a week, continued with rosuvastatin 20 mg daily (4) Morbid obesity with BMI of 45.0-49.9, adult: Code(s): E66.01 - Morbid (severe) obesity due to excess calories; Z68.42 - Body mass index [BMI] 45.0-49.9, adult Plan: Your BMI is above the ideal range.Discussed need to increase activity and weight reduction. Recommended focusing on improving health instead of dieting. Mediterranean diet is a healthy diet that helps, limit food high in fat, sugar, and calories. Eat slowly, pay attention to portion sizes, plan your meals ahead of time, start regular physical activity, at least 150 minutes of moderate intensity exercise, or 90 minutes per week of vigorous exercise. Keeping a food diary, tracking what you eat and your physical activity can help assess what improvements you can make. There are many health problems associated with being overweight/obese, so it is important to improve your diet and exercise. There are medications and surgical options available, but Lifestyle changes are the 1st step. (5) Mild intermittent asthma: Code(s): J45.20 - Mild intermittent asthma, uncomplicated Qualifiers: Asthma complication type: uncomplicated Qualified Code(s): J45.20 - Mild intermittent asthma, uncomplicated Plan: pneumococcal vaccination, flu vaccine and COVID vaccination recommended but patient declined. Refill prescription sent for albuterol inhaler, to use as directed. (6) Impaired fasting glucose: Code(s): R73.01 - Impaired fasting glucose Plan: Your previous fasting blood sugars were elevated above 100 mg/dL. Impaired glucose metabolism increases the risk for developing diabetes mellitus type 2, as well as heart attack and stroke later on. Lifestyle changes that promotes weight loss, healthy eating habits, and regular exercise are important, and can prevent the progression to diabetes (7) COVID-19 vaccine dose declined: Code(s): Z28.21 - Immunization not carried out because of patient refusal (8) Advanced directives, counseling/discussion: Code(s): Z71.89 - Other specified counseling Plan: Initiated the conversation about Advanced Directives. Advanced Directives help patients prepare for current and future decisions about their medical treatment and place of care. Discussed with patient that it is a process where a patients current condition and prognosis are reviewed, their wishes for information regarding their illness are elicited, and likely medical dilemmas are presented and options discussed. Healthcare proxy form completed today. The form can be amended as needed, reviewed yearly and make changes as needed Orders: Orders Hemoglobin A1c Today E66.01 - Morbid (severe) obesity due to excess calories, E78.5 - Hyperlipidemia, unspecified, I10 - Essential (primary) hypertension, J45.20 - Mild intermittent asthma, uncomplicated, R73.01 - Impaired fasting glucose, Z00.01 - Encounter for general adult medical examination with abnormal findings, Z68.42 - Body mass index [BMI] 45.0-49.9, adult Alanine Aminotransferase Today E66.01 - Morbid (severe) obesity due to excess calories, E78.5 - Hyperlipidemia, unspecified, I10 - Essential (primary) hypertension, J45.20 - Mild intermittent asthma, uncomplicated, R73.01 - Impaired fasting glucose, Z00.01 - Encounter for general adult medical examination with abnormal findings, Z68.42 - Body mass index [BMI] 45.0-49.9, adult Aspartate Amino Transferase Today E66.01 - Morbid (severe) obesity due to excess calories, E78.5 - Hyperlipidemia, unspecified, I10 - Essential (primary) hypertension, J45.20 - Mild intermittent asthma, uncomplicated, R73.01 - Impaired fasting glucose, Z00.01 - Encounter for general adult medical examination with abnormal findings, Z68.42 - Body mass index [BMI] 45.0-49.9, adult Basic Metabolic Panel Fasting Today E66.01 - Morbid (severe) obesity due to excess calories, E78.5 - Hyperlipidemia, unspecified, I10 - Essential (primary) hypertension, J45.20 - Mild intermittent asthma, uncomplicated, R73.01 - Impaired fasting glucose, Z00.01 - Encounter for general adult medical examination with abnormal findings, Z68.42 - Body mass index [BMI] 45.0-49.9, adult Lipid Panel Today E66.01 - Morbid (severe) obesity due to excess calories, E78.5 - Hyperlipidemia, unspecified, I10 - Essential (primary) hypertension, J45.20 - Mild intermittent asthma, uncomplicated, R73.01 - Impaired fasting glucose, Z00.01 - Encounter for general adult medical examination with abnormal findings, Z68.42 - Body mass index [BMI] 45.0-49.9, adult Vitamin D 25-OH Total Today E66.01 - Morbid (severe) obesity due to excess calories, E78.5 - Hyperlipidemia, unspecified, I10 - Essential (primary) hypertension, J45.20 - Mild intermittent asthma, uncomplicated, R73.01 - Impaired fasting glucose, Z00.01 - Encounter for general adult medical examination with abnormal findings, Z68.42 - Body mass index [BMI] 45.0-49.9, adult Medications: New albuterol sulfate 90 mcg/actuation 2 puffs inhalation Q6H PRN 8.5 grams 2RF bronchospasm Refilled hydrochlorothiazide 12.5 mg PO QAM 90 caps 1RF Coding Level of Care Code Est Pt Prev Care 40-64y(70218) Diagnoses Annual visit for general adult medical examination with abnormal findings Z00.01 Essential hypertension I10 Dyslipidemia E78.5 Morbid obesity with BMI of 45.0-49.9, adult E66.01; Z68.42 Mild intermittent asthma without complication J45.20 Asthma complication type: uncomplicated Impaired fasting glucose R73.01 COVID-19 vaccine dose declined Z28.21 Advanced directives, counseling/discussion Z71.89 Additional Codes NATASHA-7 Assessment Billing - NATASHA-7 Assessment Tool: NATASHA-7 Assessment 76051 ([id number]) Vital Signs *Quality* - Advance Care Planning discussion: Completed/Scanned ([id number]) Vital Signs *Quality* - Time spent: 16-45 minutes ([id number])
== END 2023-12-08 09:57 | disposition home or self-care (01) ==
PROVIDERS: PCP Internal Medicine; Visit Provider Internal Medicine
DX: Z00.00 Encounter for general adult medical examination without abnormal findings (principal); I10 Essential (primary) hypertension; E66.01 Morbid (severe) obesity due to excess calories; Z68.42 Body mass index [BMI] 45.0-49.9, adult; E78.5 Hyperlipidemia, unspecified; J45.20 Mild intermittent asthma, uncomplicated; R73.01 Impaired fasting glucose; Z28.21 Immunization not carried out because of patient refusal; Z71.89 Other specified counseling
CPT/HCPCS: 1123F; 99396; 99497

== ENCOUNTER 2023-12-08 09:58 | Outpatient (REF) | payer OTHER, SELFPAY ==
[2023-12-08 13:37] LABS: Estimated Average Glucose 105 mg/dL; Hemoglobin A1c % 5.3 % (<6.0)
[2023-12-08 14:00] LABS: Alanine Aminotransferase 61 U/L (0-31); Anion Gap 14 (12-20); Aspartate Amino Transferase 55 U/L (5-31); Blood Urea Nitrogen 17 mg/dL (9-16); Calcium 10.2 mg/dL (8.4-10.2); Carbon Dioxide 29 mmol/L (22-29); Chloride 103 mmol/L (96-108); Cholesterol 168 mg/dL (<200); Estimated Glomerular Filt Rate 54; Glucose Fasting 107 mg/dL (60-99); HDL Cholesterol 50 mg/dL (>40); LDL Cholesterol Calculated 82 mg/dL (<100); Potassium 4.2 mmol/L (3.3-5.1); Sodium 142 mmol/L (135-145); Triglycerides 184 mg/dL (<150)
[2023-12-08 14:03] LABS: Vitamin D 25-OH Total 66.8 ng/mL (>30)
== END 2023-12-08 09:59 | disposition home or self-care (01) ==
LOC: HO.HMGCLDS 09:58
PROVIDERS: PCP Internal Medicine; Visit Provider Internal Medicine
DX: Z00.01 Encounter for general adult medical examination with abnormal findings (principal); R73.01 Impaired fasting glucose; J45.20 Mild intermittent asthma, uncomplicated; E66.01 Morbid (severe) obesity due to excess calories; E78.5 Hyperlipidemia, unspecified; I10 Essential (primary) hypertension
CPT/HCPCS: 36415; 80048; 80061; 82306; 83036; 84450; 84460

== ENCOUNTER 2024-01-22 07:40 | Outpatient (REF) | payer OTHER, SELFPAY ==
--- NOTE | ~2024-01-22 | MM_ITS ---
EXAMINATION: MM SCREENING DIGITAL BREAST TOMOSYNTHESIS, BILATERAL CLINICAL INFORMATION: Screening. Asymptomatic. COMPARISON: Mammography: Comparison is made with available priors TECHNIQUE: Digital breast mammography with tomosynthesis is performed in both the craniocaudal and mediolateral oblique views along with computer-aided detection (CAD). FINDINGS: There are scattered areas of fibroglandular density (ACR BI-RADS breast composition Category b). There are no significant masses, abnormal calcifications, or other abnormalities. MM/MM tomosynthesis screening BI IMPRESSION: No mammographic evidence of malignancy. ASSESSMENT: BI-RADS BI-RADS 1 - Negative RECOMMENDATION: Routine annual mammography screening. 1 year F/U This examination should not preclude the clinical evaluation of a suspicious palpable abnormality. This patient's information was entered into a reminder system with a target due date for their next mammogram. Electronically signed by: Mabel Brandon DO 02/04/2024 10:08 AM JENN
== END 2024-01-22 07:41 | disposition home or self-care (01) ==
LOC: HO.MAMMO 07:40
PROVIDERS: PCP Internal Medicine; Visit Provider Internal Medicine
DX: Z12.31 Encounter for screening mammogram for malignant neoplasm of breast (principal)
CPT/HCPCS: 77063; 77067

== ENCOUNTER → 2024-01-22 07:45 | Outpatient (BNV) | payer OTHER, SELFPAY | PROVIDERS: PCP Internal Medicine; Visit Provider Internal Medicine | DX: Z12.31 Encounter for screening mammogram for malignant neoplasm of breast (principal) | CPT/HCPCS: 77063; 77067 ==

== ENCOUNTER 2024-12-19 08:43 | Outpatient (AMB) | payer OTHER, SELFPAY ==
--- NOTE | 2024-12-19 09:24 | A.OFFPC_ITS ---
Vital Signs 12/19/24 09:34 Height 5 ft 5 in Weight 280 lb BMI 46.6 BP 122/78 Blood Pressure Location Lt brachial Position Sitting Respiration 16 Pulse 71 Pulse Source Pulse Oximeter Temp 98.2 F Temp Source Oral Pulse Oximetry (%) 97 Oxygen Delivery Method Room Air Intake Visit Reasons: PE Intake Note: Pt is here today for her PE: last mammogram 01/22/24, colonoscopy 06/13/21 Allergies No Known Allergies Allergy (Verified 12/19/24 09:45) Medication List - Last Reconciled 12/19/24 by Bell Reddy MD albuterol sulfate 90 mcg/actuation 2 puffs inhalation Q6H PRN hydrochlorothiazide 12.5 mg PO QAM lisinopril 5 mg PO DAILY magnesium glycinate 240mg multivit with min-folic acid 80 mcg (Centrum Adult 50 Plus) 1 tab PO DAILY omega-3 fatty acids (Fish Oil Concentrate) 1,000 mg PO DAILY rosuvastatin 20 mg PO DAILY Tobacco use date assessed: 12/19/24 Dental Screening Dental Screen Date: 12/19/24 Did you have a dental visit in the last 12 months?: No Did you have a dental problem in the last 6 months where you did not have access to dental care?: No Was dental information given to patient?: Patient has dentist HPI PE HPI Details 54-year-old lady with history of hyperte nsion, dyslipidemia, and mild intermittent asthma and obesity, here today for physical exam. She is up-to-date with her screening mammogram, last done 01/22/24, , sees her OBGYN, Dr. Char Rodriguez for her routine Pap and pelvic exam. Up-to-date with her colon cancer screening, with Cologuard this year with negative finding. Complaining of pain on medial and plantar aspect of left foot, worse with walking and accompanied by swelling around ankle, left more than the right Has a crusted lesion on her back that she wants to get checked. COUNT INCLUDES [facility] Medical History (Updated 12/19/24 @ 10:00 by Bell Reddy MD) Skin lesion of back Pain in left foot COVID-19 vaccine dose declined Impaired fasting glucose History of COVID-19 History of anxiety disorder Mild intermittent asthma Morbid obesity with BMI of 45.0-49.9, adult Dyslipidemia Essential hypertension Surgical History History of skin cancer History of incision and drainage History of hemorrhoidectomy History of surgery Family History Father Myocardial infarction, Onset Age: 49 Emphysema lung Mother Essential hypertension Hyperlipidemia Sister Breast cancer, Onset Age: 58 Maternal Aunt Breast cancer Social History Housing: House Patient Tobacco Use Status: Never used Tobacco e-Cigarette/Vaping Use: Never Used service: No Current occupational status: employed Cognitive needs: No Hearing needs: No Vision needs: Yes Questionnaire PHQ-9 Over the last 2 weeks, how often have you been bothered by any of the following problems? 1. Little interest or pleasure in doing things: not at all 2. Feeling down, depressed, or hopeless: not at all 3. Trouble falling or staying asleep, or sleeping too much: several days 4. Feeling tired or having little energy: several days 5. Poor appetite or overeating: not at all 6. Feeling bad about yourself - or that you are a failure or have let yourself or your family down: not at all 7. Trouble concentrating on things, such as reading the newspaper or watching television: not at all 8. Moving or speaking so slowly that other people could have noticed. Or the opposite - being so fidgety or restless that you have been moving around a lot more than usual: not at all 9. Thoughts that you would be better off or of hurting yourself in some way: not at all Total score: 2 Depression Screening Interpretation: Negative Depression Screening Done: Yes 42094 - PHQ-9 Billing: Yes Source: Developed by Drs. Herve Wise, Andra Steinberg, Baldemar Michaud and colleagues, with an educational elham from [employer]. Thrive Questionnaire Date Thrive assessed: 12/13/24 I am a: Patient What is your living situation today?: I have a steady place to live Within the past 12 months, did the food you bought not last and you didn't have the money to get more?: I choose not to answer this question Within the past 12 months, did you worry whether your food would run out before you got money to buy more?: I choose not to answer this question Do you have trouble paying for medicines?: No Do you have trouble getting transportation to medical appointments?: No Do you have trouble paying your heating and electricity bill?: No Do you have trouble taking care of your child, family member or friend?: No Do you have trouble with day-to-day activities such as bathing, preparing meals, shopping, managing finances, etc.?: No Are you currently unemployed and looking for a job?: No Are you interested in more education?: No Please select the resources that you would like help with: None Currently or been in a relationship where the following occur: I choose not to answer THRIVE Score: 0 AUDIT C Alcohol Use Questionnaire (AUDIT-C) 1. How often do you have a drink containing alcohol?: Never 3. How often do you have six or more drinks on one occasion?: Never Total Score: 0 Score Reviewed/Action Taken: Yes NATASHA-7 AMB Questionnaire NATASHA-7 Date NATASHA - 7 assessed: 12/19/24 Feeling nervous, anxious, or on edge: 0 = Not at all Not being able to stop or control worryin = Not at all Worrying too much about different things: 0 = Not at all Trouble relaxin = Not at all Being so restless that it is hard to sit still: 0 = Not at all Becoming easily annoyed or irritable: 0 = Not at all Feeling afraid as if something awful might happen: 0 = Not at all Total NATASHA-7 score (0-4 normal; 5-9 mild; 10-14 moderate; 15-21 severe): 0 Source: Developed by Drs. Herve Wise, Andra Steinberg, Baldemar Michaud and colleagues, with an educational elham from [employer]. NATASHA-7 Assessment Billing NATASHA-7 Assessment Tool: NATASHA-7 Assessment 83634 Review of Systems Const Reports no additional complaints and Reports weight gain Eyes Details: Up-to-date with her eye exam, goes to [facility] Reports no additional complaints ENT Denies nasal congestion and Denies sore throat Card Denies chest pain, Denies lightheadedness, Denies palpitations and Denies dyspnea Resp Denies chest congestion, Denies cough and Denies dyspnea GI Denies abdominal pain, Denies change in bowel habits and Denies heartburn Denies nipple discharge Musc Reports as per HPI Skin/Breast Reports as per HPI, Denies breast pain, Denies breast mass, Denies change in breast shape, Denies nipple discharge and Denies rash Neuro Reports no additional complaints Psych Reports no additional complaints Endo Denies polydipsia, Denies polyuria and Denies palpitations Hong/Lymph Denies easy bruising Aller/Immun Reports as per HPI and Denies seasonal rhinorrhea Physical exam (Primary Care) Vital Signs: Last Vital Signs Temp 98.2 F 12/19/24 09:34 Pulse 71 12/19/24 09:34 Resp 16 12/19/24 09:34 BP 122/78 12/19/24 09:34 Pulse Ox 97 12/19/24 09:34 Oxygen Delivery Method Room Air 12/19/24 09:34 BMI result Body Mass Index 46.6 Tobacco/Smoking Status: Tobacco use Status Tobacco use date assessed 12/19/24 12/19/24 09:40 Patient Tobacco Use Status Never used Tobacco 12/19/24 09:25 e-Cigarette/Vaping Use Never Used 12/19/24 09:25 PHQ-9: PHQ-9 Score PHQ-9: Total score 2 12/19/24 09:47 Depression Screening Interpretation: Negative Thrive Assessment: Date of Thrive Assessment Date Thrive assessed 12/13/24 12/19/24 09:25 Currently or been in a relationship where the following occur: I choose not to answer Const General: no acute distress and alert Nutritional Appearance: obese Orientation/consciousness: patient oriented x3 HENMN Head: Yes normocephalic Ears: EAC's normal General nose exam: Normal external nose present Face and sinus: Yes face symmetric Mouth: Normal oral and palatal mucosa present and moist mucous membranes Eyes General: appearance normal, both eyes and all related structures Conjunctivae: conjunctivae normal Sclerae: sclerae normal Pupils: Equal, round and reactive pupils present EOM: EOMs intact bilaterally Neck Other: Nonpalpable thyroid Neck: Yes full ROM and Yes no lymphadenopathy Chest Chest palpation & inspection: normal inspection of the chest and normal palpation of entire chest wall Breast/axilla palpation: normal palpation of the breasts Resp Effort & Inspection: normal respiratory effort and able to speak in complete sentences Auscultation: clear to auscultation bilaterally Cardio Jugular venous distension: no JVD Rate: regular rate Rhythm: regular rhythm Heart sounds: S1 normal heart sound present and S2 normal heart sound present GI Inspection: Yes obesity Palpation (GI): Soft to palpation, nontender, no guarding and no masses Auscultation: normal bowel sounds Other: Currently sees Dr. Char Rodriguez General: Yes no CVA tenderness Back/Spine/Pelvis Back: no CVA tenderness and No back tenderness Skin Other: Brownish scaly slightly raised lesion on mid back Neuro General: patient oriented x3 Cranial nerves: Yes Equal, round and reactive pupils present Extrem Other: Tenderness on palpation to lateral aspect of left foot General: Yes full ROM, Yes no joint enlargement, Yes no pedal edema, Yes no calf tenderness and Yes normal gait Psych Appearance: grossly normal and well kempt Mental Status: mental status grossly normal Speech and movement: Normal speech and movement present Affect: normal affect Coding Level of Care Code Est Pt Prev Care 40-64y(13406) Diagnoses Annual visit for general adult medical examination with abnormal findings Z00.01 Screening for Malignant Neoplasm of Skin Z12.83 Essential hypertension I10 Dyslipidemia E78.5 Mild intermittent asthma without complication J45.20 Asthma complication type: uncomplicated Impaired fasting glucose R73.01 Swelling of lower extremity M79.89 Pain in left foot M79.672 Skin lesion of back L98.9 Morbid obesity with BMI of 45.0-49.9, adult E66.01; Z68.42 Additional Codes NATASHA-7 Assessment Billing - NATASHA-7 Assessment Tool: NATASHA-7 Assessment 02631 ([id number]) PHQ-9 - 15295 - PHQ-9 Billing: Yes ([id number]) Assessment & Plan Assessment & Plan (1) Annual visit for general adult medical examination with abnormal findings: Code(s): Z00.01 - Encounter for general adult medical examination with abnormal findings Plan: Will check appropriate labs. Recommended dental visit every 6 months and regular eye exams, at least every 2 years. Take adequate calcium in diet and vitamin-D 3 at 2000 IU per cap once a day, in addition to weight-bearing exercises to help maintain good muscle tone and weight control. She is up-to-date with her screening mammogram, last done 01/22/24, , sees her Dr. Char CRUZ for her routine Pap and pelvic exam. Up-to-date with her colon cancer screening, with Cologuard this year with negative finding. Declines vaccines (2) Screening for Malignant Neoplasm of Skin: Code(s): Z12.83 - Encounter for screening for malignant neoplasm of skin Plan: Dermatology consult ordered (3) Essential hypertension: Code(s): I10 - Essential (primary) hypertension Category: Medical Plan: Blood pressure at goal of less than 130/80. Continue with lisinopril 5 mg daily and dose of hydrochlorothiazide increased his 25 mg in the morning, to help relieve swelling extremities. Reinforced importance of following a low sodium diet, getting regular exercise, and lowering stress levels. (4) Dyslipidemia: Code(s): E78.5 - Hyperlipidemia, unspecified Category: Medical Plan: Fasting lipids ordered.. Continue taking [place] 3 fatty acid supplements, and rosuvastatin same dose , in addition to adherence to low-cholesterol diet and regular exercise, at least 30 minutes 3 to 4 times a week. Advised patient to make healthy food choices, eat more fruits, vegetables, whole grains, wild caught fish and low-fat dairy. Limit amount of meat and fried or fatty food products, as well as processed foods and fast foods. (5) Mild intermittent asthma: Code(s): J45.20 - Mild intermittent asthma, uncomplicated Category: Medical Qualifiers: Asthma complication type: uncomplicated Qualified Code(s): J45.20 - Mild intermittent asthma, uncomplicated Plan: Currently using albuterol as needed (6) Impaired fasting glucose: Code(s): R73.01 - Impaired fasting glucose Category: Medical Plan: Your previous fasting blood sugars were elevated above 100 mg/dL. Impaired glucose metabolism increases the risk for developing diabetes mellitus type 2, as well as heart attack and stroke later on. Lifestyle changes that promotes weight loss, healthy eating habits, and regular exercise are important, and can prevent the progression to diabetes (7) Swelling of lower extremity: Code(s): M79.89 - Other specified soft tissue disorders Plan: Ultrasound venous insufficiency bilateral test ordered (8) Pain in left foot: Code(s): M79.672 - Pain in left foot Category: Medical Plan: Podiatry consult ordered (9) Skin lesion of back: Code(s): L98.9 - Disorder of the skin and subcutaneous tissue, unspecified Category: Medical Plan: Dermatology consult ordered (10) Morbid obesity with BMI of 45.0-49.9, adult: Code(s): E66.01 - Morbid (severe) obesity due to excess calories; Z68.42 - Body mass index [BMI] 45.0-49.9, adult Category: Medical Plan: Discussed need to increase activity and weight reduction. Recommended focusing on improving health instead of dieting. Mediterranean diet is a healthy diet that helps, limit food high in fat, sugar, and calories. Eat slowly, pay attention to portion sizes, plan your meals ahead of time, start regular physical activity, at least 150 minutes of moderate intensity exercise per week Orders: Orders Lipid Panel 12/19/24 E78.5 - Hyperlipidemia, unspecified, I10 - Essential (primary) hypertension, J45.20 - Mild intermittent asthma, uncomplicated, R73.01 - Impaired fasting glucose Vitamin D 25-OH Total 12/19/24 E78.5 - Hyperlipidemia, unspecified, I10 - Essential (primary) hypertension, J45.20 - Mild intermittent asthma, uncomplicated, R73.01 - Impaired fasting glucose US venous insuf bilat 12/19/24 M79.89 - Other specified soft tissue disorders Comprehensive Aspen. Panel Fast 12/19/24 E78.5 - Hyperlipidemia, unspecified, I10 - Essential (primary) hypertension, J45.20 - Mild intermittent asthma, uncomplicated, R73.01 - Impaired fasting glucose Hemoglobin A1c 12/19/24 E78.5 - Hyperlipidemia, unspecified, I10 - Essential (primary) hypertension, J45.20 - Mild intermittent asthma, uncomplicated, R73.01 - Impaired fasting glucose Referrals Dermatology Referral L98.9 - Disorder of the skin and subcutaneous tissue, unspecified, Z12.83 - Encounter for screening for malignant neoplasm of skin Podiatry Referral M79.672 - Pain in left foot Medications: New hydrochlorothiazide 25 mg PO QAM 90 tabs 0RF Refilled lisinopril 5 mg PO DAILY 90 tabs 4RF Discontinued hydrochlorothiazide Discontinued Reason: Doctor's Order 12.5 mg PO QAM 90 caps 1RF
[2024-12-19 09:34] VITALS: BP 122/78; PULSE 71; RESP 16; TEMP 36.8; O2SAT 97; BMI 46.6
--- OUTSIDE RECORDS SUMMARY | 2024-12-19 10:32 | XMS_ITS | Patient Health Record ---
Author Organization [facility] Address [address] [place] [address] Support Name Relationship Address Phone ESTRELLASERAFINMARCI Guarantor Unknown [phone] Reason For Referral No Information Medications Medication SIG (Take, Route, Fr equency, Duration) Notes Start Date End Date Status Simvastatin 40MG 1 ORAL daily; Duration: -3 Elijha-MJ 2011 Active Lisinopril 10MG 1 ORAL daily; Duration: -3 Elijah-MJ 012 Active Immunizations Vaccine Route Administration Date Status Comme nts Tdap Unknown 10/12/2011 Pending Problems Problem Type SNOMED Code ICD Code Onset Dates Problem Status W/U Status Risk Notes Problem Pure hypercholesterolemia (311329749) Pure hypercholesterolemia (272.0) Active confirmed Major Problem Obesity (956241481) Obesity, uns pecified (278.00) Active confirmed Major Problem Essential hypertension (97289554) Unspecified essential hypertension (401.9) Active confirmed Major Problem Gynecological examination normal (559854460862923) Routine gynecological examination (V72.31) Active confirmed Diag Problem Dietary management surveillance (164358833) Dietary surveillance and counseling (V65.3) Active confirmed Diag Plan Of Treatment No Information Insurance Providers Payer Name Payer Address Payer Phone Subscriber Number Group Number Insured Name Patient Relationship to Insured Coverage Start Date Coverage End Date [facility] [address] [place] [address] [phone] [id number] MARCI DE LA ROSA Self - patient is the insured
--- OUTSIDE RECORDS SUMMARY | 2024-12-19 10:32 | XMS_ITS | Patient Health Record ---
Author Organization [facility] [place] Address [address] [place] [address] Care Team Providers Care Ux Researcher Name Role Phone Maureen BRADY, Bell Giordano Primary Care Provider Un available Melissa Sawant Unavailable [phone] Reason For Referral No Information Medications Medication SIG (Take, Route, Frequency, Duration) Notes Start Date End Date Status Fish Oil Active Ground Flax Seeds Orally Ac tive Centrum [employer] Active Aspirin 81 MG 1 tablet Orally Once a day Active Crestor 20 MG 1 tablet Orally Once a day Active Lisinopril 5 MG 1 tablet Orally Once a day Active Work Note . . . out of work due to injection therapy Active Work Note . . . out of work due to injection therapy 07/08/2015 Active Night Splint AFO - L1930 as directed 11/07/2015 Active Immunizations Vaccine Route Administration Date Status Comme nts Influenza Unknown 07/12/2015 Refused Social History Tobacco Use: Social History Observation Description Date Details (start date - stop date) Never Smoker NA - NA Tobacco Use/Smoking Question Answer Notes Are you a: nonsmoker Additional Findings: Tobacco Non-User Current no n-smoker Alcohol Screen Question Answer Notes Did you have a drink containing alcohol in the p ast year? No Points 0 Interpretation Negative Tobacco use other than smoking: Question Answer Notes Are you an other tobacco user? No Problems No Known Problems Plan Of Treatment Pending Test Test Name Order Date [id number] Destruction, 1-14 07/12/2015 [id number] Destruction, -12/19/2015 17607-Lczyvfnc Plate 08/02/2017 [id number] TENDON SHEATH/LIGAMENT 0 07/12/2015 22471,[id number] TENDON SHEATH/LIGAMENT 0 09/06/2015,[id number] TENDON SHEATH/LIGAMENT 0 11/15/2015 Insurance Providers Payer Name Payer Address Payer Phone Subscriber Number Group Number Insured Name Patient Relationship to Insured Coverage Start Date Coverage End Date [facility] [address] [place] [address] [id number] Krista Kirby Self - patient is the insured Medical (General) History Medical History History ICD Code Chicken pox High blood pressure Surgical History Surgery Date(Month/Year) cholecystectomy mouth cancer removed
--- OUTSIDE RECORDS SUMMARY | 2024-12-19 10:32 | XMS_ITS | Clinical Summary ---
Author Organization [facility] Address [address] [place] [address] Phone Care Team Providers Care Information Resources Manager Name Role Phone Bell Reddy MD Primary Care Provider Allergies No known active allergies Medications hydroCHLOROthia zide (MICROZIDE) 12.5 mg capsule Take 12.5 mg by mouth every morning. 01/03/2021 Active lisinopril (PRINIVIL,ZESTR IL) 5 MG tablet 01/27/2021 Act zoran rosuvastatin (CRESTOR) 20 MG tablet 01/13/2021 Active omega 2-dqw-paj-fish oil 1,000 mg (120 mg-180 mg) Cap Take 1 capsule by mouth daily. Active MULTIVITAMIN ORAL Take by mouth. Active albuterol 90 mcg/actuation inhaler Inhale into the lungs. 01/04/2024 Active Immunizations Immunization Administration Dates Next Due Influenza Quadrivalent w/ Preservative IM 2018 Tdap 07/22/2017 Family History Medical History Relation Comments COPD Father Coronary artery disease Father Hyperlipidemia Mother Hypertension Mother Bone cancer Sister Breast cancer Sister Relation Status Comments Father Mother Sister Social History Tobacco Use Types Packs/Day Years Used Date Smoking Tobacco: Never Smokeless Tobacco: Never Tobacco Cessation:Counseling Given: Not Answered Alcohol Use Standard Drinks/Week Comments Never 0 (1 standard drink = 0.6 oz pur e alcohol) Education Answer Date Recorded Are you interested in more education? Not on francie e 07/31/2022 Are you concerned about learning? Not on file 07/31/2022 No 07/31/2022 No 07/31/2022 Digital Access Answer Date Recorded No 08/29/2022 No 08/29/2022 Reliable internet access at home? Not on file 08/29/2022 Device with a working camera? Not on file Comments No Sex and Gender Information Value Date Recorded Sex Assigned at Not on file Legal Sex Female 9:37 PM EDT Gender Identity Not on file Sexual Orientation Not on file Last Filed Vital Signs Vital Sign Reading Time Taken Comments Blood Pressure 144/74 04/04/2024 7:55 AM EST Pulse - - Temperature - - Respiratory Rate - - Oxygen Saturation - - Inhaled Oxygen Concentration - - Weight 124.7 kg (275 lb) 03/11/2023 8:05 AM EST Height 165.1 cm (5' 5 ) 04/04/2024 7:55 AM EST Body Mass Index 45.76 03/11/2023 8:05 AM EST Plan of Treatment Health Maintenance Due Date Last Done Comments CREATININE LEVEL 1968 LIPID PANEL 1968 POTASSIUM LEVEL 1968 DEPRESSION SCREENING 1980 HEPATITIS C SCREENING 1986 HIV ONE-TIME SCREENING (18-6 5 YEARS) 1986 SCREENING FOR DIABETES 2003 COLOGUARD 2013 COLONOSCOPY 2013 COLORECTAL CANCER SCREENING 2013 FIT TEST 2013 FOBT 2013 SIGMOIDOSCOPY 2013 VIRTUAL COLONOSCOPY 2013 ZOSTER VACCINES (1 of 2) 2018 MAMMOGRAM 01/07/2023 01/07/2021 INFLUENZA VACCINE (#1) 2024 , 04/02/2022, 02/09/2019 COVID-19 VACCINE (3 - 2024-2 6 season) 2024 09/10/2020, 08/20/2020 PAP SMEAR 03/03/2026 03/03/2021 Adult Td,Tdap Booster 07/23/2027 07/22/2017 PNEUMOCOCCAL VACCINES (50+ years) Completed 02/13/2024 SMOKING STATUS SCREENING (On ce After 26 Yrs) Completed 04/04/2024 HEPATITIS A VACCINES Aged Out No long er eligible based on patient's age to complete this topic HIB VACCINES Aged Out No longer eligi ble based on patient's age to complete this topic MENINGOCOCCAL VACCINES (ACWY) Aged Out No longer eligible based on patient's age to complete this topic MENINGOCOCCAL VACCINES (B) Aged Out N o longer eligible based on patient's age to complete this topic Medical Devices Not on file Procedures Procedure Name Priority Date/Time Associated Diagnosis Comments PAP TEST Routine 03/03/2021 12:00 AM EST HM MAMMOGRAPHY Routine 01/07/2021 from Last 3 Months or Most Recently Relevant to Health Maintenance Results * Pap Smear (03/03/2021 12:00 AM EST) 03/03/2021 03/04/2021 8:4 2 AM EST Narrative SEE NARRATIVE - 03/10/2021 11:36 AM EST [address] [address] [employer] Specialists: Nava Elizondo MD SWEET POTATO DISINTEGRATOR Cytology Report FINAL DIAGNOSIS A. PAP SMEAR (SUREPATH) CE: SPECIMEN ADEQUACY: Satisfactory for evaluation; transformation zone absent/insufficient. Limited by mucus/lubricant INTERPRETATION: NEGATIVE FOR INTRAEPITHELIAL LESION OR MALIGNANCY. Electronically Signed Out By: ANDREIA Mendez(ASC) The Pap test is a screening test primarily for squamous cancers and precursors and has associated false-negative and false-positive results. New technologies such as liquid-based preparations may decrease but will not eliminate all false-negative results. Regular sampling and follow-up of unexplained clinical signs and symptoms are recommended to minimize false negative results. PROCEDURES/ADDENDA HPV Testing (Requested) Ordered Date: 03/04/2021 A. PAP SMEAR (SUREPATH) CE: Human Papilloma Virus Test Negative for high-risk human papillomavirus types 16, 18, 45 and the Other high risk probe set (Includes 31, 33, 35, 39, 51, 52, 56, 58, 59, 66, 68) by [employer]enes Onclarity HR-HPV analysis. Clinical correlation is advised. This HPV test was performed at [facility], [address] [place] [address]. This test has been FDA approved for SurePath cervical cytology specimens. The accuracy and precision of this test for all other specimen sources has been verified in the Cytopathology Laboratory of the [facility] and has not been cleared or approved by the U.S. Food and Drug Administration. Clinical correlation is advised. CLINICAL HISTORY Date of Last Menstrual Period: Not Provided Menstrual History: Emi-Menopausal Other Clinical Conditions: Screening Pap SPECIMEN SOURCE A: PAP SMEAR (SUREPATH) CE Patient Name: MARCI LAURENT : 1970 (Age: 50) Sex: F Institution: [facility] Location: [facility] Date of Collection: 03/03/2021 Date of Reported: 03/10/2021 11:36 Results to: Char Rodriguez MD us Char Rodriguez MD CYTOLOGY ORDERABLES Final Result SEE NARRATIVE * MAMMOGRAPHY FOR RESULT ENTRY ONLY (01/07/2021) us Historical Provider HEALTH MAINTENANCE Final Result from Last 3 Months or Most Recently Relevant to Health Maintenance Insurance [employer] DIRECT [employer] [address] [place] [address] [address] [employer] [address] [place] [address] [employer] [address] [address] [address] [employer] DIRECT [facility] [employer] DIRECT Care Teams Information Resources Manager Relationship Specialty Start Date End Date Bell Reddy MD [address] [place] [address] PCP - General 01/18/17 Additional Source Comments The information contained in this document represents components of the legal health record. It is not the complete legal health record.[facility]
== END 2024-12-19 10:16 | disposition home or self-care (01) ==
LOC: HO.HMCC 08:43
PROVIDERS: PCP Internal Medicine; Visit Provider Internal Medicine
DX: Z00.01 Encounter for general adult medical examination with abnormal findings (principal); I10 Essential (primary) hypertension; E66.01 Morbid (severe) obesity due to excess calories; Z68.42 Body mass index [BMI] 45.0-49.9, adult; E78.5 Hyperlipidemia, unspecified; J45.20 Mild intermittent asthma, uncomplicated; Z12.83 Encounter for screening for malignant neoplasm of skin; R73.01 Impaired fasting glucose; M79.89 Other specified soft tissue disorders; M79.672 Pain in left foot; L98.9 Disorder of the skin and subcutaneous tissue, unspecified

== ENCOUNTER 2024-12-19 08:43 | Outpatient (REF) | payer OTHER, SELFPAY ==
[2024-12-19 14:03] LABS: Total Hemoglobin (HGBA1C) 3618.8019 umol/L
[2024-12-19 14:33] LABS: Alanine Aminotransferase 54 U/L (0-31); Albumin Level 4.7 g/dL (3.5-5.0); Alkaline Phosphatase 60 U/L (39-117); Anion Gap 12 (12-20); Aspartate Amino Transferase 49 U/L (5-31); Blood Urea Nitrogen 19 mg/dL (9-16); Calcium 9.6 mg/dL (8.4-10.2); Carbon Dioxide 31 mmol/L (22-29); Chloride 104 mmol/L (96-108); Cholesterol 169 mg/dL (<200); Estimated Glomerular Filt Rate 58; HDL Cholesterol 54 mg/dL (>40); Potassium 4.1 mmol/L (3.3-5.1); Sodium 143 mmol/L (135-145); Total Protein 7.5 g/dL (6.5-8.0); Triglycerides 178 mg/dL (<150)
== END 2024-12-19 08:44 | disposition home or self-care (01) ==
LOC: HO.HMGCLDS 08:43
PROVIDERS: PCP Internal Medicine; Visit Provider Internal Medicine
DX: Z00.01 Encounter for general adult medical examination with abnormal findings (principal); Z12.83 Encounter for screening for malignant neoplasm of skin; I10 Essential (primary) hypertension; J45.20 Mild intermittent asthma, uncomplicated; E66.01 Morbid (severe) obesity due to excess calories; E78.5 Hyperlipidemia, unspecified; R73.01 Impaired fasting glucose; M79.89 Other specified soft tissue disorders; M79.672 Pain in left foot; L98.9 Disorder of the skin and subcutaneous tissue, unspecified; Z68.42 Body mass index [BMI] 45.0-49.9, adult; Z79.899 Other long term (current) drug therapy
CPT/HCPCS: 36415; 80053; 80061; 82306; 83036; 96127; 99396

== ENCOUNTER 2025-01-05 07:58 | Outpatient (AMB) | payer OTHER, SELFPAY ==
--- NOTE | 2025-01-05 08:01 | MHC.OFFVIS ---
Intake Visit Reasons: Pain in left foot Intake Note: Krista is a 54 year old female who presents today as a new patient for an evaluation of her left foot pain. Patient reports that her pain is located on the medial and plantar aspect of left foot and feels worse with ambulation. She has pain that radiates up the anterior orellana when she dorsiflexes. Denies numbness and tingling. Denies injury. she also complains of swelling of the left ankle. Her pain comes and goes and when her foot pain flares up her knee begins to bother her. Bilateral Lower extremity ultrasounds have been ordered but not yet scheduled Allergies No Known Allergies Allergy (Verified 01/05/25 08:06) HPI HPI Pain in left foot: Details: The patient is a 54-year-old female past medical history of hypertension and hyperlipidemia presenting with left foot pain. The pain began in July and worsened in September, initially perceived as left medial knee pain but later localized to the top of her foot, exacerbated by walking and specific movements. She has tried buying new shoes including asics and wearing Dr. Webb's arch supports, however she has found only moderate relief. She still experiences pain while walking daily. She has a history of left foot plantar fasciitis, which is not bothering her at this time. She is also concerned about possible plantar warts on the bottom of both of her feet. [facility] Medical History (Updated 01/05/25 @ 10:14 by Reuben Dugan DPM) Skin lesion of back Pain in left foot COVID-19 vaccine dose declined Impaired fasting glucose History of COVID-19 History of anxiety disorder Mild intermittent asthma Morbid obesity with BMI of 45.0-49.9, adult Dyslipidemia Essential hypertension Surgical History History of skin cancer History of incision and drainage History of hemorrhoidectomy History of surgery Family History Father Myocardial infarction, Onset Age: 49 Emphysema lung Mother Essential hypertension Hyperlipidemia Sister Breast cancer, Onset Age: 58 Maternal Aunt Breast cancer Social History Housing: House Patient Tobacco Use Status: Never used Tobacco e-Cigarette/Vaping Use: Never Used service: No Current occupational status: employed Cognitive needs: No Hearing needs: No Vision needs: Yes Review of Systems Const All systems reviewed & are unremarkable except as noted in HPI and below Physical Exam Extrem Other: *Bilateral Lower Extremity Focused Exam Vascular: DP/PT 2/4, CFT<3s to digits, TG warm to cool, mild edema over dorsal medial aspect of 1st TMT joint left foot Derm: Two solitary well-circumscribed firm lesions measuring 1 cm in diameter with hyperkeratotic borders, disruption of the normal skin lines, and pinpoint bleeding -- one is present on the right plantar forefoot, and the second is on the plantar left heel. Neuro: Protective sensation grossly intact to bilateral lower extremities MSK: Mild tenderness on palpation over the AT tendon left ankle towards this insertion over the dorsal aspect of the 1st TMT. Mild tenderness on palpation over the medial and plantar aspect of the 1st TMT. No pain along the retromalleolar region of the posterior tibial tendon, mild pain of the PT tendon on inversion at the level of the navicular tuberosity. Office Procedures AMB Wart Destruction Podiatry Details of Procedure: Procedure: Wart destruction Location: Bilateral feet (2 lesions) Anesthesia: N/A Description: The affected area was cleansed with an antiseptic solution. Using a sterile #15 blade, the hyperkeratotic tissue was radially debrided from the foot. Next, salicylic acid was applied using an applicator to the wart, and occluded using a band-aid. Tolerance: Patient tolerated procedure well, no immediate complications. 18884 - Wart Destruction (<15) Procedure code (CPT) selection complete Office Meds salicylic acid 27.5 % topical film-forming liquid Performing Provider: Reuben Dugan DPM Performing Location: [facility] Administered by: Reuben Dugan DPM on 01/05/25 10:10 Dose Route Admin Location Dispensed Lot Number Expiration Date [facility] Revenue Investigator 1 appl topical 10 mL [id number] [employer]ACE Assessment & Plan Assessment & Plan (1) Tendinitis of left ankle: Code(s): M77.52 - Other enthesopathy of left foot and ankle Category: Medical Plan: Discussed the etiology of her left foot and ankle pain. Differential diagnosis includes tibialis anterior tendonitis, PT tendonitis, 1st TMT arthropathy. Rx left foot x-rays She was given a handout for range of motion and stretching exercises. Patient deferred physical therapy at this time. She was recommended medium or supports to elevate her arch and offload the PT and AT tendons. Recommended supportive shoe-wear. Patient may require a referral for custom orthotics. (2) Plantar wart of both feet: Code(s): B07.0 - Plantar wart Category: Medical Plan: Debrided both verrucous lesions and applied salicylic acid. Instructions were given including occluding with band-aid daily. Rx salicylic acid 40% to be applied at home under occlusion. Follow up in 2 weeks (3) Pes planus of both feet: Code(s): M21.41 - Flat foot [pes planus] (acquired), right foot; M21.42 - Flat foot [pes planus] (acquired), left foot Category: Medical Plan: Recommended over the counter orthotics (aetrex and superfeet) Orders: Orders AMB Wart Destruction Podiatry Today B07.0 - Plantar wart XR foot LT min 3V Today M79.672 - Pain in left foot Medications: New salicylic acid 40% (Wart Remover) Soak the affected foot in warm water to soften the wart. Place the plaster directly on the wart, avoiding healthy skin. Ensure the plaster is securely adhered for continuous contact. Apply every other day. 1 appl topical Q2D 18 ea 0RF Plantar wart 14 days B07.0 - Plantar wart Coding Level of Care Code New Pt Level 3 (81435) Diagnoses Tendinitis of left ankle M77.52 Plantar wart of both feet B07.0 Pes planus of both feet M21.41; M21.42 CPT Codes Destruction of Wart - CPT: 36035 - Wart Destruction (<15) ([id number]) Time Spent (min) 30
--- OUTSIDE RECORDS SUMMARY | 2025-01-05 08:02 | XMS_ITS | Clinical Summary ---
Author Organization [facility] Address [address] [address] Phone Care Team Providers Care Composite Mechanic Name Role Phone Bell Reddy MD Primary Care Provider Allergies No known active allergies Medications hydroCHLOROthia zide (MICROZIDE) 12.5 mg capsule Take 12.5 mg by mouth every morning. 01/03/2021 Active lisinopril (PRINIVIL,ZESTR IL) 5 MG tablet 01/27/2021 Act zoran rosuvastatin (CRESTOR) 20 MG tablet 01/13/2021 Active omega 1-wmi-swc-fish oil 1,000 mg (120 mg-180 mg) Cap Take 1 capsule by mouth daily. Active MULTIVITAMIN ORAL Take by mouth. Active albuterol 90 mcg/actuation inhaler Inhale into the lungs. 01/04/2024 Active Encounters Date Type Department Care Team Description 12/26/2024 Telephone [facility] [address] [place] [address] Char Rodriguez MD from Last 3 Months Immunizations Immunization Administration Dates Next Due Influenza [...] SEE NARRATIVE - 03/10/2021 11:36 AM EST [address] [address] Supervisor [employer]build[employer]: Nava Elizondo MD LAWN SPRINKLER SERVICER Cytology Report FINAL DIAGNOSIS A. PAP SMEAR (SUREPATH) CE: SPECIMEN ADEQUACY: Satisfactory for evaluation; transformation zone absent/insufficient. Limited by mucus/lubricant INTERPRETATION: NEGATIVE FOR INTRAEPITHELIAL LESION OR MALIGNANCY. Electronically Signed Out By: ANDREIA Mendez(ASCP) The Pap test is a screening test [...] 52, 56, 58, 59, 66, 68) by [employer] Onclarity HR-HPV analysis. Clinical correlation is advised. This HPV test was performed at [facility], [address] [place] [address]. This test has been FDA approved for SurePath cervical cytology specimens. The accuracy and precision of this test for all other specimen sources has been verified in the Cytopathology Laboratory of the [facility] and has not been cleared or approved by the U.S. Food and Drug Administration. Clinical correlation is advised. CLINICAL HISTORY Date of Last Menstrual Period: Not Provided Menstrual History: Emi-Menopausal Other Clinical Conditions: Screening Pap SPECIMEN SOURCE A: PAP SMEAR (SUREPATH) CE Patient Name: MARCI LAURENT : 1970 (Age: 50) Sex: F Institution: [facility] Location: [facility] Date of Collection: 03/03/2021 Date of Reported: 03/10/2021 11:36 Results to: Char Rodriguez MD Char Rodriguez MD CYTOLOGY ORDERABLES Final Result SEE NARRATIVE * MAMMOGRAPHY FOR RESULT ENTRY ONLY (01/07/2021) Historical Provider HEALTH MAINTENANCE Final Result from Last 3 Months or Most Recently Relevant to Health Maintenance Insurance [employer] [place] [address] [place] [address] [employer] DIRECT [employer] DIRECT [employer] [facility] DIRECT [employer] [place] [address] [place] [address] [employer] DIRECT Care Teams Composite Mechanic Relationship Specialty Start Date End Date Bell Reddy MD [address] [place] [address] PCP - General 01/18/17 Additional Source Comments The information contained in this document represents components of the legal health record. It is not the complete legal health record.[facility]
--- OUTSIDE RECORDS SUMMARY | 2025-01-05 08:02 | XMS_ITS | Patient Health Record ---
Author Organization [facility] Address [address] [place] [address] Care Team Providers Care Teacher Theater Arts Name Role Phone Maureen BRADY, Bell Giordano Primary Care Provider Un available Melissa Sawant Unavailable [phone] Reason For Referral No Information Medications Medication [...] Treatment Pending Test Test Name Order Date [id number] Destruction, 1-14 07/12/2015 [id number] Destruction, -12/19/2015 [id number] Plate 08/02/2017 [id number] TENDON SHEATH/LIGAMENT 0 07/12/2015 [id number] TENDON SHEATH/LIGAMENT 0 09/06/2015,[id number] TENDON SHEATH/LIGAMENT 0 11/15/2015 Insurance Providers Payer Name Payer Address Payer Phone Subscriber Number Group Number Insured Name Patient Relationship to Insured Coverage Start Date Coverage End Date [facility] [address] [place] [address] [id number] Krista Kirby Self - patient is the insured Medical (General) History Medical History History ICD Code Chicken pox High blood pressure Surgical History Surgery Date(Month/Year) cholecystectomy mouth cancer removed
--- OUTSIDE RECORDS SUMMARY | 2025-01-05 08:02 | XMS_ITS | Patient Health Record ---
Author Organization [facility] Address [address] [place] [address] Support Name Relationship Address Phone ESTRELLASERAFINMARCI Guarantor Unknown [phone] Reason For Referral No Information Medications Medication SIG (Take, Route, Fr equency, Duration) Notes Start Date End Date Status Simvastatin 40MG 1 ORAL daily; Duration: -3 Elijah-MJ 2011 Active Lisinopril 10MG 1 ORAL daily; Duration: -3 Elijah-MJ 012 Active Immunizations Vaccine Route Administration Date Status Comme nts Tdap Unknown 10/12/2011 Pending Problems Problem Type SNOMED Code ICD Code Onset Dates Problem Status W/U Status Risk Notes Problem Pure hypercholesterolemia (082839785) Pure hypercholesterolemia (272.0) Active confirmed Major Problem Obesity (567554443) Obesity, uns pecified (278.00) Active confirmed Major Problem Essential hypertension (72896259) Unspecified essential hypertension (401.9) Active confirmed Major Problem Gynecological examination normal (649183710433998) Routine gynecological examination (V72.31) Active confirmed Diag Problem Dietary management surveillance (510959973) Dietary surveillance and counseling (V65.3) Active confirmed Diag Plan Of Treatment No Information Insurance Providers Payer Name Payer Address Payer Phone Subscriber Number Group Number Insured Name Patient Relationship to Insured Coverage Start Date Coverage End Date [facility] [address] [place] [address] [id number] MARCI DE LA ROSA Self - patient is the insured
--- OUTSIDE RECORDS SUMMARY | 2025-01-05 08:02 | XMS_ITS | Encounter Summary ---
Author Organization [facility] Address [address] [place] [address] Phone Care Team Providers Care Bead Inspector Name Role Phone Bell Reddy MD Primary Care Provider Encounter Details Date Type Department Care Team (Late st Contact Info) Description 12/26/2024 Telephone [facility] [address] [place] [id number] Char Rodriguez MD [address], [address] [place] [address] Social History Tobacco Use Types Packs/Day Years Used Date Smoking Tobacco: Never Smokeless Tobacco: Never Alcohol Use Standard Drinks/Week Comments Never 0 [...] on file Sexual Orientation Not on file documented as of this encounter Plan of Treatment Not on file documented as of this encounter Visit Diagnoses Not on filedocumented in this encounter Care Teams Bead Inspector Relationship Specialty Start Date End Date Bell Reddy MD [address] [place] [address] PCP - General 01/18/17 documented as of this encounter Additional Source Comments The information contained in this document represents components of the legal health record. It is not the complete legal health record.[facility]
== END 2025-01-05 08:30 | disposition home or self-care (01) ==
LOC: HO.HPODS 07:59
PROVIDERS: PCP Internal Medicine; Visit Provider Student in an Organized Health Care Education/Training Program
DX: M77.52 Other enthesopathy of left foot and ankle (principal); B07.0 Plantar wart; M21.41 Flat foot [pes planus] (acquired), right foot; M21.42 Flat foot [pes planus] (acquired), left foot
CPT/HCPCS: 17110; 99203

== ENCOUNTER 2025-01-05 07:58 | Outpatient (REF) | payer OTHER, SELFPAY ==
--- NOTE | ~2025-01-05 | XR_ITS ---
EXAMINATION: XR FOOT, LEFT CLINICAL INFORMATION: M79.672 - Pain in left foot COMPARISON: None available. TECHNIQUE: AP, lateral, and oblique views of the left foot. FINDINGS: Bone alignment is normal. No fracture or dislocation. Mild degenerative changes at the tibiotalar and talonavicular joints. There is soft tissue swelling adjacent to the fifth metatarsal bone. There are small calcaneal spurs. XR/XR foot LT min 3V IMPRESSION: Lateral soft tissue swelling. No fracture or dislocation. Mild degenerative changes. Electronically signed by: Damaris Caban MD 01/05/2025 11:39 AM EDT
== END 2025-01-05 07:59 | disposition home or self-care (01) ==
LOC: HO.HMGCX 07:58
PROVIDERS: PCP Internal Medicine; Visit Provider Student in an Organized Health Care Education/Training Program
DX: M77.52 Other enthesopathy of left foot and ankle (principal); B07.0 Plantar wart; M21.41 Flat foot [pes planus] (acquired), right foot; M21.42 Flat foot [pes planus] (acquired), left foot
CPT/HCPCS: 73630

== ENCOUNTER → 2025-01-05 11:27 | Outpatient (BNV) | payer OTHER, SELFPAY | PROVIDERS: PCP Internal Medicine; Visit Provider Radiology Diagnostic Radiology | DX: M79.89 Other specified soft tissue disorders (principal) | CPT/HCPCS: 73630 ==

== ENCOUNTER 2025-01-26 08:41 | Outpatient (AMB) | payer OTHER, SELFPAY ==
[2025-01-26 08:50] VITALS: BMI 46.6
--- NOTE | 2025-01-26 08:50 | A.OFFVIS_ITS ---
Vital Signs 01/26/25 08:50 Height 5 ft 5 in Weight 280 lb BMI 46.6 Intake Visit Reasons: Pain in left foot Intake Note: Krista is a 54 year old female who presents today as for a follow up on her tendonitis of her left ankle, bilateral flat feet, Plantar wart of left foot. At her last visit a debridement of the plantar wart was performed, and she was provided with a range of motion exercises sheet for her ankle pain, and she was advised the use of over the counter orthotics and supportive shoe wear. Pt states she has received supportive shoe wear and finds that she is unable to wear the shoes for a long period of time. She has used an over the counter wart medication and completed said med and finds that the warts are still there. Patient says the exercises has helped with her pain but she finds herself having slight pain in the top of her left foot. X rays where done at [facility]. Allergies No Known Allergies Allergy (Verified 01/26/25 08:51) HPI HPI Pain in left foot: Details: The patient is a 54-year-old female past medical history of hypertension and hyperlipidemia presenting with 2 week follow up for left foot pain and bilateral plantar warts. She states that she purchased an mars-itz-vtonjpo wart medication and has been applying it daily. She has noticed relief from it. She has also been performing the range of motion/stretching exercises for her left ankle and also purchase the recommended ukgx-aer-uvdrrkv orthotics. She states that her pain has decreased to her foot ankle and her left knee. History: The pain began in July and worsened in September after a slip and fall injury. This was initially perceived as left medial knee pain but later localized to the top of her foot, exacerbated by walking and specific movements. She has tried buying new shoes including asics and wearing Dr. Webb's arch supports, however she has found only moderate relief. She still experiences pain while walking daily. She has a history of left foot plantar fasciitis, which is not bothering her at this time. She is also concerned about possible plantar warts on the bottom of both of her feet. [facility] Medical History (Updated 01/05/25 @ 10:14 by Reuben Dugan DPM) Skin lesion of back Pain in left foot COVID-19 vaccine dose declined Impaired fasting glucose History of COVID-19 History of anxiety disorder Mild intermittent asthma Morbid obesity with BMI of 45.0-49.9, adult Dyslipidemia Essential hypertension Surgical History History of skin cancer History of incision and drainage History of hemorrhoidectomy History of surgery Family History Father Myocardial infarction, Onset Age: 49 Emphysema lung Mother Essential hypertension Hyperlipidemia Sister Breast cancer, Onset Age: 58 Maternal Aunt Breast cancer Social History Housing: House Patient Tobacco Use Status: Never used Tobacco e-Cigarette/Vaping Use: Never Used service: No Current occupational status: employed Cognitive needs: No Hearing needs: No Vision needs: Yes Review of Systems Const All systems reviewed & are unremarkable except as noted in HPI and below Physical Exam Vital Signs: BMI result Body Mass Index 46.6 Extrem Other: *Bilateral Lower Extremity Focused Exam Vascular: DP/PT 2/4, CFT<3s to digits, TG warm to cool, mild edema over dorsal medial aspect of 1st TMT joint left foot Derm: Solitary well-circumscribed firm lesions measuring 1 cm in diameter plantar right foot and left foot with disruption of the normal skin lines, and pinpoint bleeding. Neuro: Protective sensation grossly intact to bilateral lower extremities MSK: * Mild tenderness on palpation over the AT tendon left ankle towards this insertion over the dorsal aspect of the 1st TMT. * Mild tenderness on palpation over the medial and plantar aspect of the 1st TMT. No pain along the retromalleolar region of the posterior tibial tendon, mild pain of the PT tendon on inversion at the level of the navicular tuberosity. Office Procedures AMB Wart Destruction Podiatry Details of Procedure: Procedure: Wart destruction Location: Bilateral feet (2 lesions) Anesthesia: N/A Description: The affected area was cleansed with an antiseptic solution. Using a sterile #15 blade, the hyperkeratotic tissue was radially debrided from the foot. Next, salicylic acid was applied using an applicator to the wart, and occl uded using a band-aid. Tolerance: Patient tolerated procedure well, no immediate complications. 91347 - Wart Destruction (<15) Procedure code (CPT) selection complete Results Reviewed Results Reviewed: Podiatry X-ray Read: 01/05/2025 X-ray left foot 3 views (AP, MO, Lateral) reviewed which shows ossicle over the dorsal aspect of the navicular, no dislocations, or gross abnormalities. Bone density is within normal limits. Normal anatomy. No evidence of swelling, foreign body, or calcifications. I personally reviewed the imaging and my findings are listed above. Assessment & Plan Assessment & Plan (1) Tendinitis of left ankle: Code(s): M77.52 - Other enthesopathy of left foot and ankle Category: Medical Plan: * Discussed the etiology of her left foot and ankle pain. Differential diagnosis includes tibialis anterior tendonitis, PT tendonitis, 1st TMT arthropathy. * Reviewed left foot x-rays * Continue range of motion and stretching exercises. We will defer physical therapy at this point due to improvement in symptoms. * Continue aetrex orthotics in supportive shoe-wear. Patient may require a referral for custom orthotics. (2) Plantar wart of both feet: Code(s): B07.0 - Plantar wart Category: Medical Plan: * Debrided both verrucous lesions and applied salicylic acid. Instructions were given including occluding with band-aid daily. * Instructed to continue to apply wart treatment to bilateral feet daily for the next week. * Follow up in 2 weeks (3) Pes planus of both feet: Code(s): M21.41 - Flat foot [pes planus] (acquired), right foot; M21.42 - Flat foot [pes planus] (acquired), left foot Category: Medical Plan: * Recommended over the counter orthotics (aetrex and superfeet) Coding Level of Care Code Est Pt Level 3 (40483) Diagnoses Tendinitis of left ankle M77.52 Plantar wart of both feet B07.0 Pes planus of both feet M21.41; M21.42 CPT Codes Destruction of Wart - CPT: 68168 - Wart Destruction (<15) ([id number]) Time Spent (min) 25
== END 2025-01-26 09:18 | disposition home or self-care (01) ==
LOC: HO.HPODS 08:42
PROVIDERS: PCP Internal Medicine; Visit Provider Student in an Organized Health Care Education/Training Program
DX: M77.52 Other enthesopathy of left foot and ankle (principal); B07.0 Plantar wart; M21.41 Flat foot [pes planus] (acquired), right foot; M21.42 Flat foot [pes planus] (acquired), left foot
CPT/HCPCS: 17110; 99213

== ENCOUNTER → 2025-01-26 08:41 | Outpatient (BNVA) | payer OTHER, SELFPAY | PROVIDERS: PCP Internal Medicine; Visit Provider Student in an Organized Health Care Education/Training Program | DX: B07.0 Plantar wart (principal); M77.52 Other enthesopathy of left foot and ankle; M21.41 Flat foot [pes planus] (acquired), right foot; M21.42 Flat foot [pes planus] (acquired), left foot | CPT/HCPCS: 17110; 99212 ==

== ENCOUNTER 2025-01-27 07:25 | Outpatient (REF) | payer OTHER, SELFPAY ==
--- OUTSIDE RECORDS SUMMARY | 2025-01-27 07:27 | XMS_ITS | Clinical Summary ---
Author Organization [facility] Address [address] [address] Phone Care Team Providers Care Cloth Coverer Name Role Phone Bell Reddy MD Primary Care Provider Allergies No known active allergies Medications hydroCHLOROthia zide (MICROZIDE) 12.5 mg capsule Take 12.5 mg by mouth every morning. 01/03/2021 Active lisinopril (PRINIVIL,ZESTR IL) 5 MG tablet 01/27/2021 Act zoran rosuvastatin (CRESTOR) 20 MG tablet 01/13/2021 Active omega 8-cbg-wmm-fish oil 1,000 mg (120 mg-180 mg) Cap Take 1 capsule by mouth daily. Active MULTIVITAMIN ORAL Take by mouth. Active albuterol 90 mcg/actuation inhaler Inhale into the lungs. 01/04/2024 Active Encounters Date Type Department Care Team Description 12/26/2024 Telephone [facility] [address] [place] [address] Char Rodriguez MD from Last 3 Months [...] FOBT 2013 SIGMOIDOSCOPY 2013 VIRTUAL COLONOSCOPY 2013 RSV VACCINE (1 - Risk 50-74 years 1-dose series) 2018 ZOSTER VACCINES (1 of 2) 2018 MAMMOGRAM [...] SEE NARRATIVE - 03/10/2021 11:36 [place] [address] Pet Caretaker: Nava Elizondo MD WOOD BUCKER Cytology Report FINAL DIAGNOSIS A. PAP SMEAR [...] 52, 56, 58, 59, 66, 68) by [employer] Onclarity HR-HPV analysis. Clinical correlation is advised. This HPV test was performed at [facility], [address] [place] [address]. This test has been FDA approved for SurePath cervical cytology specimens. The accuracy and precision of this test for all other specimen sources has been verified in the Cytopathology Laboratory of the [facility] and has not been cleared or approved by the U.S. Food and Drug Administration. Clinical correlation is advised. CLINICAL HISTORY Date of Last Menstrual Period: Not Provided Menstrual History: Emi-Menopausal Other Clinical Conditions: Screening Pap SPECIMEN SOURCE A: PAP SMEAR (SUREPATH) CE Patient Name: MARCI LAURENT : 1970 (Age: 50) Sex: F Institution: [facility] Location: [facility] Date of Collection: 03/03/2021 Date of Reported: 03/10/2021 11:36 Results to: Char Rodriguez MD Char Rodriguez MD CYTOLOGY ORDERABLES Final Result SEE NARRATIVE * MAMMOGRAPHY FOR RESULT ENTRY ONLY (01/07/2021) us Historical Provider HEALTH MAINTENANCE Final Result from Last 3 Months or Most Recently Relevant to Health Maintenance [place] [address] [place] [address] [employer] DIRECT [facility] [employer] DIRECT [employer] DIRECT [employer] DIRECT P[employer] PL[employer] DIRECT [facility] PUBLIC PLANS DIRECT Care Teams Cloth Coverer Relationship Specialty Start Date End Date Bell Reddy MD [address] [place] [address] PCP - General 01/18/17 Additional Source Comments The information contained in this document represents components of the legal health record. It is not the complete legal health record.[facility]
--- OUTSIDE RECORDS SUMMARY | 2025-01-27 07:27 | XMS_ITS | Patient Health Record ---
Author Organization [facility] Address [address] [place] [address] Support Name Relationship Address Phone ESTRELLASERAFINMARCI Guarantor Unknown [phone] Reason For Referral No Information Medications Medication [...] W/U Status Risk Notes Problem Pure hypercholesterolemia (069281960) Pure hypercholesterolemia (272.0) Active confirmed Major Problem Obesity (879677946) Obesity, uns pecified (278.00) Active confirmed Major Problem Essential hypertension (19671937) Unspecified essential hypertension (401.9) Active confirmed Major Problem Gynecological examination normal (710570837244645) Routine gynecological examination (V72.31) Active confirmed Diag Problem Dietary management surveillance (336381907) Dietary surveillance and counseling (V65.3) Active confirmed Diag Plan Of Treatment No Information Insurance Providers Payer Name Payer Address Payer Phone Subscriber Number Group Number Insured Name Patient Relationship to Insured Coverage Start Date Coverage End Date [facility] [address] [place] [address] [phone] [id number] MARCI DE LA ROSA Self - patient is the insured
--- OUTSIDE RECORDS SUMMARY | 2025-01-27 07:28 | XMS_ITS | Patient Health Record ---
Author Organization [facility] Address [address] [place] [address] Care Team Providers Care Braiding Machine Operator Name Role Phone Maureen BRADY, Bell Giordano Primary Care Provider Un available Melissa Sawant Unavailable [phone] Reason For Referral No Information Medications Medication [...] Treatment Pending Test Test Name Order Date [id number] Destruction, 1-14 07/12/2015 [id number] Destruction, -12/19/2015 [id number]-Ewoevsxl Plate 08/02/2017 [id number] TENDON SHEATH/LIGAMENT 0 07/12/2015 [id number] TENDON SHEATH/LIGAMENT 0 09/06/2015,[id number] TENDON SHEATH/LIGAMENT 0 11/15/2015 Insurance Providers Payer Name Payer Address Payer Phone Subscriber Number Group Number Insured Name Patient Relationship to Insured Coverage Start Date Coverage End Date [facility] [address] [place] [address] [id number] Krista Kirby Self - patient is the insured Medical (General) History Medical History History ICD Code Chicken pox High blood pressure Surgical History Surgery Date(Month/Year) cholecystectomy mouth cancer removed
== END 2025-01-27 07:26 | disposition home or self-care (01) ==
LOC: HO.MAMMO 07:25
PROVIDERS: PCP Internal Medicine; Visit Provider Internal Medicine
DX: Z12.31 Encounter for screening mammogram for malignant neoplasm of breast (principal)
CPT/HCPCS: 77063; 77067

== ENCOUNTER → 2025-01-27 07:30 | Outpatient (BNV) | payer OTHER, SELFPAY | PROVIDERS: PCP Internal Medicine; Visit Provider Internal Medicine | DX: Z12.31 Encounter for screening mammogram for malignant neoplasm of breast (principal) | CPT/HCPCS: 77063; 77067 ==

== ENCOUNTER 2025-01-30 08:24 | Outpatient (REF) | payer OTHER, SELFPAY ==
--- NOTE | ~2025-01-30 | US_ITS ---
EXAMINATION: US LOWER EXTREMITY VENOUS (REFLUX EXAM), BILATERAL CLINICAL INFORMATION: M 79.89. COMPARISON: None. TECHNIQUE: Color flow triplex imaging and compression Doppler was performed to evaluate both the deep and the superficial systems bilaterally. To evaluate the superficial system, the examination was performed in the upright position. Color-flow Doppler ultrasound and compression ultrasound were utilized. In addition, maneuvers were utilized to demonstrate reflux. FINDINGS: 1. DEEP VENOUS ULTRASOUND OF THE RIGHT LOWER EXTREMITY: Common Femoral Vein: Compressible, normal respiratory variation and augmented flow. Femoral Vein: Compressible, normal color flow and augmentation. Popliteal Vein: Compressible, normal augmentation. Deep Reflux: There is no evidence of reflux in the deep system in either the common femoral vein, superficial femoral or the popliteal vein. There is no evidence of a Ritchie's cyst. 2. SUPERFICIAL ULTRASOUND WITH DOPPLER OF RIGHT LOWER EXTREMITY: GREAT SAPHENOUS VEIN: Saphenofemoral Junction: 0.8 cm; Reflux: 0 ms Proximal Thigh: 0.5 cm; Reflux: 0 ms Mid Thigh: 0.4 cm; Reflux: 0 ms Distal Thigh: 0.6 cm; Reflux: 0 ms At Knee: 0.5 cm; Reflux: 0 ms Proximal Calf: 0.4 cm; Reflux: 0 ms Mid Calf: 0.3 cm; Reflux: 0 ms Distal Calf: 0.3 cm; Reflux: 0 ms DUPLICATED MEDIAL GREAT SAPHENOUS VEIN: Diameter: None imaged Reflux: NA DUPLICATED LATERAL GREAT SAPHENOUS VEIN: Diameter: 0.4 cm. Reflux: NA SMALL SAPHENOUS VEIN: Saphenopopliteal Junction: 0.2 cm; Reflux: 0 ms Proximal: 0.2 cm; Reflux: 0 ms Distal: 0.2 cm; Reflux: 0 ms VEIN OF GIACOMINI: Size: NA Reflux: NA PERFORATORS: Location: Small saphenous vein, distal segment. Great saphenous vein proximal calf. Size: 0.2 and 0.1 cm, respectively. Reflux: NA VARICOSITIES: Location: None imaged. Size: NA Reflux: NA 3. DEEP VENOUS ULTRASOUND OF THE LEFT LOWER EXTREMITY: Common Femoral Vein: Compressible, normal respiratory variation and augmented flow. Femoral Vein: Compressible, normal color flow and augmentation. Popliteal Vein: Compressible, normal augmentation. Deep Reflux: There is no evidence of reflux in the deep system in either the common femoral vein, superficial femoral or the popliteal vein. There is no evidence of a Ritchie's cyst. 4. SUPERFICIAL ULTRASOUND WITH DOPPLER OF LEFT LOWER EXTREMITY: GREAT SAPHENOUS VEIN: Saphenofemoral Junction: 1.0 cm; Reflux: 0 ms Proximal Thigh: 0.5 cm; Reflux: 0 ms Mid Thigh: 0.5 cm; Reflux: 0 ms Distal Thigh: 0.4 cm; Reflux: 0 ms At Knee: 0.4 cm; Reflux: 0 ms Proximal Calf: 0.4 cm; Reflux: 0 ms Mid Calf: 0.3 cm; Reflux: 0 ms Distal Calf: 0.3 cm; Reflux: 0 ms DUPLICATED MEDIAL GREAT SAPHENOUS VEIN: Diameter: None imaged Reflux: NA DUPLICATED LATERAL GREAT SAPHENOUS VEIN: Diameter: 0.4 cm. Reflux: NA SMALL SAPHENOUS VEIN: Saphenopopliteal Junction: 0.4 cm; Reflux: 0 ms Proximal: 0.3 cm; Reflux: 0 ms Distal: 0.2 cm; Reflux: 0 ms VEIN OF GIACOMINI: Size: NA Reflux: NA PERFORATORS: Location: Small saphenous vein, mid segment. Great saphenous vein, distal thigh and proximal calf. Size: 0.2-0.3 cm. Reflux: NA VARICOSITIES: Location: Accessory mid saphenous vein. Size: 0.5 cm. Reflux: NA US/US venous insuf bilat IMPRESSION: Right: No venous insufficiency. Perforators without reflux. Left: No venous insufficiency. Perforators and varices without reflux Electronically signed by: Pedro Ballard MD 01/30/2025 10:26 AM EDT
--- OUTSIDE RECORDS SUMMARY | 2025-01-30 09:01 | XMS_ITS | Patient Health Record ---
Author Organization [facility] Address [address] [place] [address] Support Name Relationship Address Phone ESTRELLASERAFINMARCI Guarantor Unknown [phone] Reason For Referral No Information Medications Medication [...] W/U Status Risk Notes Problem Pure hypercholesterolemia (341701926) Pure hypercholesterolemia (272.0) Active confirmed Major Problem Obesity (494934055) Obesity, uns pecified (278.00) Active confirmed Major Problem Essential hypertension (74769955) Unspecified essential hypertension (401.9) Active confirmed Major Problem Gynecological examination normal (449734559446925) Routine gynecological examination (V72.31) Active confirmed Diag Problem Dietary management surveillance (510639179) Dietary surveillance and counseling (V65.3) Active confirmed Diag Plan Of Treatment No Information Insurance Providers Payer Name Payer Address Payer Phone Subscriber Number Group Number Insured Name Patient Relationship to Insured Coverage Start Date Coverage End Date [facility] [address] [place] [address] [id number] MARCI DE LA ROSA Self - patient is the insured
--- OUTSIDE RECORDS SUMMARY | 2025-01-30 09:01 | XMS_ITS | Patient Health Record ---
Author Organization [facility] Address [address] [place] [address] Care Team Providers Care Auto Body Repair Teacher Name Role Phone Maureen BRADY, Bell Giordano Primary Care Provider Un available Melissa Sawant Unavailable [phone] Reason For Referral No Information Medications Medication [...] Treatment Pending Test Test Name Order Date [id number] Destruction, 1-14 07/12/2015 [id number] Destruction, -12/19/2015 94817-Jmljwvys Plate 08/02/2017 [id number] TENDON SHEATH/LIGAMENT 0 07/12/2015 [id number] TENDON SHEATH/LIGAMENT 0 09/06/2015,[id number] TENDON SHEATH/LIGAMENT 0 11/15/2015 Insurance Providers Payer Name Payer Address Payer Phone Subscriber Number Group Number Insured Name Patient Relationship to Insured Coverage Start Date Coverage End Date [facility] [address] [place] [address] [id number] Krista Kirby Self - patient is the insured Medical (General) History Medical History History ICD Code Chicken pox High blood pressure Surgical History Surgery Date(Month/Year) cholecystectomy mouth cancer removed
--- OUTSIDE RECORDS SUMMARY | 2025-01-30 09:01 | XMS_ITS | Clinical Summary ---
Author Organization [facility] Address [address] [address] Phone Care Team Providers Care Senior Data Analyst Name Role Phone Bell Reddy MD Primary Care Provider Allergies No known active allergies Medications hydroCHLOROthia zide (MICROZIDE) 12.5 mg capsule Take 12.5 mg by mouth every morning. 01/03/2021 Active lisinopril (PRINIVIL,ZESTR IL) 5 MG tablet 01/27/2021 Act zoran rosuvastatin (CRESTOR) 20 MG tablet 01/13/2021 Active omega 9-bxk-nda-fish oil 1,000 mg (120 mg-180 mg) Cap Take 1 capsule by mouth daily. Active MULTIVITAMIN ORAL Take by mouth. Active albuterol 90 mcg/actuation inhaler Inhale into the lungs. 01/04/2024 Active Encounters Date Type Department Care Team Description 12/26/2024 Telephone [employer] [facility] [address] [place] [address] Char Rodriguez MD from Last 3 Months [...] SEE NARRATIVE - 03/10/2021 11:36 [place] [address] Associate Veterinarian: Nava Elizondo MD VEHICLE DAMAGE APPRAISER Cytology Report FINAL DIAGNOSIS A. PAP SMEAR [...] 52, 56, 58, 59, 66, 68) by [employer] Onclarity HR-HPV analysis. Clinical correlation is advised. This HPV test was performed at [facility], [address] [place] [address]. This test has been FDA approved for SurePath cervical cytology specimens. The accuracy and precision of this test for all other specimen sources has been verified in the Cytopathology Laboratory of the [facility] and has not been cleared or approved by the U.S. Food and Drug Administration. Clinical correlation is advised. CLINICAL HISTORY Date of Last Menstrual Period: Not Provided Menstrual History: Emi-Menopausal Other Clinical Conditions: Screening Pap SPECIMEN SOURCE A: PAP SMEAR (SUREPATH) CE Patient Name: MARCI LAURENT : 1970 (Age: 50) Sex: F Institution: [facility] Location: [facility] Date of Collection: 03/03/2021 Date of Reported: 03/10/2021 11:36 Results to: Char Rodriguez MD Char Rodriguez MD CYTOLOGY ORDERABLES Final Result SEE NARRATIVE * MAMMOGRAPHY FOR RESULT ENTRY ONLY (01/07/2021) us Historical Provider HEALTH MAINTENANCE Final Result from Last 3 Months or Most Recently Relevant to Health Maintenance [place] [address] [address] [employer] DIRECT [facility] [employer] DIRECT [employer] PLANS DIRECT [employer] DIRECT [employer] PLANS DIRECT [facility] PUBLIC PLANS DIRECT Care Teams Senior Data Analyst Relationship Specialty Start Date End Date Bell Reddy MD [address] [place] [address] PCP - General 01/18/17 Additional Source Comments The information contained in this document represents components of the legal health record. It is not the complete legal health record.[facility]
== END 2025-01-30 08:25 | disposition home or self-care (01) ==
LOC: HO.US 08:24
PROVIDERS: PCP Internal Medicine; Visit Provider Internal Medicine
DX: R60.0 Localized edema (principal)
CPT/HCPCS: 93970

== ENCOUNTER → 2025-01-30 08:26 | Outpatient (BNV) | payer OTHER, SELFPAY | PROVIDERS: PCP Internal Medicine; Visit Provider Radiology Diagnostic Radiology | DX: M79.89 Other specified soft tissue disorders (principal) | CPT/HCPCS: 93970 ==

== ENCOUNTER 2025-03-02 10:14 | Outpatient (AMB) | payer OTHER, SELFPAY ==
--- OUTSIDE RECORDS SUMMARY | 2025-03-02 10:16 | XMS_ITS | Clinical Summary ---
Author Organization [facility] Address [address] [address] Phone Care Team Providers Care Systems Integration Advisor Name Role Phone Bell Reddy MD Primary Care Provider Allergies No known active allergies Medications hydroCHLOROthia zide (MICROZIDE) 12.5 mg capsule Take 12.5 mg by mouth every morning. 01/03/2021 Active lisinopril (PRINIVIL,ZESTR IL) 5 MG tablet 01/27/2021 Act zoran rosuvastatin (CRESTOR) 20 MG tablet 01/13/2021 Active omega 8-iji-hol-fish oil 1,000 mg (120 mg-180 mg) Cap Take 1 capsule by mouth daily. Active MULTIVITAMIN ORAL Take by mouth. Active albuterol 90 mcg/actuation inhaler Inhale into the lungs. 01/04/2024 Active Encounters Date Type Department Care Team Description 12/26/2024 Telephone [employer] [facility] [address] [place] [address] Char Rodriguez MD from Last 3 Months [...] SEE NARRATIVE - 03/10/2021 11:36 [place] [address] Nipple Maker: Nava Elizondo MD MANAGER RADIATION Cytology Report FINAL DIAGNOSIS A. PAP SMEAR [...] 52, 56, 58, 59, 66, 68) by [employer] Onclarity HR-HPV analysis. Clinical correlation is advised. This HPV test was performed at [facility], [address] [place] [address]. This test has been FDA approved for SurePath cervical cytology specimens. The accuracy and precision of this test for all other specimen sources has been verified in the Cytopathology Laboratory of the [facility] and has not been cleared or approved by the U.S. Food and Drug Administration. Clinical correlation is advised. CLINICAL HISTORY Date of Last Menstrual Period: Not Provided Menstrual History: Emi-Menopausal Other Clinical Conditions: Screening Pap SPECIMEN SOURCE A: PAP SMEAR (SUREPATH) CE Patient Name: MARCI LAURENT : 1970 (Age: 50) Sex: F Institution: [facility] Location: [facility] Date of Collection: 03/03/2021 Date of Reported: 03/10/2021 11:36 Results to: Char Rodriguez MD Char Rodriguez MD CYTOLOGY ORDERABLES Final Result SEE NARRATIVE * MAMMOGRAPHY FOR RESULT ENTRY ONLY (01/07/2021) us Historical Provider HEALTH MAINTENANCE Final Result from Last 3 Months or Most Recently Relevant to Health Maintenance [place] [address] [address] [employer] DIRECT [facility] [employer] DIRECT [employer] PLANS DIRECT [employer] DIRECT [employer] PLANS DIRECT [facility] PUBLIC PLANS DIRECT Care Teams Systems Integration Advisor Relationship Specialty Start Date End Date Bell Reddy MD [address] [place] [address] PCP - General 01/18/17 Additional Source Comments The information contained in this document represents components of the legal health record. It is not the complete legal health record.[facility]
--- OUTSIDE RECORDS SUMMARY | 2025-03-02 10:17 | XMS_ITS | Patient Health Record ---
Author Organization [facility] Address [address] [place] [address] Support Name Relationship Address Phone ESTRELLASERAFINMARCI Guarantor Unknown [phone] Reason For Referral No Information Medications Medication [...] W/U Status Risk Notes Problem Pure hypercholesterolemia (816794037) Pure hypercholesterolemia (272.0) Active confirmed Major Problem Obesity (355107551) Obesity, uns pecified (278.00) Active confirmed Major Problem Essential hypertension (80025036) Unspecified essential hypertension (401.9) Active confirmed Major Problem Gynecological examination normal (819358502313745) Routine gynecological examination (V72.31) Active confirmed Diag Problem Dietary management surveillance (765262620) Dietary surveillance and counseling (V65.3) Active confirmed Diag Plan Of Treatment No Information Insurance Providers Payer Name Payer Address Payer Phone Subscriber Number Group Number Insured Name Patient Relationship to Insured Coverage Start Date Coverage End Date [facility] [address] [place] [address] [id number] MARCI DE LA ROSA Self - patient is the insured
--- OUTSIDE RECORDS SUMMARY | 2025-03-02 10:17 | XMS_ITS | Patient Health Record ---
Author Organization [facility] [place] Address [address] [place] [address] Care Team Providers Care Vacuum Pan Tender Name Role Phone Maureen BRADY, Bell Giordano Primary Care Provider Un available Melissa Sawant Unavailable [phone] Reason For Referral No Information Medications Medication [...] Treatment Pending Test Test Name Order Date [id number] Destruction, 1-14 07/12/2015 [id number] Destruction, -12/19/2015 [id number] Plate 08/02/2017 [id number] TENDON SHEATH/LIGAMENT 0 07/12/2015 [id number] TENDON SHEATH/LIGAMENT 0 09/06/2015,[id number] TENDON SHEATH/LIGAMENT 0 11/15/2015 Insurance Providers Payer Name Payer Address Payer Phone Subscriber Number Group Number Insured Name Patient Relationship to Insured Coverage Start Date Coverage End Date [facility] [address] [place] [address] [id number] Krista Kirby Self - patient is the insured Medical (General) History Medical History History ICD Code Chicken pox High blood pressure Surgical History Surgery Date(Month/Year) cholecystectomy mouth cancer removed
--- NOTE | 2025-03-02 10:32 | AM.OFFWIN_ITS ---
Intake Vital Signs 03/02/25 10:33 Height 5 ft 5 in Weight 276 lb BMI 45.9 BP 136/80 Blood Pressure Location Rt brachial Position Sitting Pulse 76 Pulse Source Pulse Oximeter Temp 98.3 F Temp Source Oral Pulse Oximetry (%) 95 Oxygen Delivery Method Room Air Intake Visit Reasons: EP sore throat cough Intake Note: presents with sore throat for 1 wk and chest congestion with dry coughingfor a few days. pt reports recently exposed to a coworker's URI Patient Tobacco Use Status: Never used Tobacco Allergies No Known Allergies Allergy (Verified 03/02/25 10:37) Do you need a note to return to daycare/school/sports/work: No HPI HPI Comments History of Present Illness Details History - The patient is a 54 year old individua l presenting for evaluation of an intermittent sore throat that has been present for about a week, along with a sensation of heaviness in the chest. - The patient reports subjective chills, describing periods of feeling very cold, and episodes of the face becoming burning red without a measured fever. - The patient notes some swelling on the left side of the neck. - The patient experienced a nocturnal co ugh, which was improved with Delsym the night before the visit. - The patient denies any sinus pain or e ar pain. - The patient's boss was recently sick w ith similar symptoms - The patient has an albuterol inhaler f or occasional chest tightness induced by irritants like cigarette smoke, but has not used it during this illness. - The patient denies a history of asthma or COPD. - For self-treatment, the patient has be en taking Coricidin for cold, flu, and chest congestion, and has taken Delsym nighttime cough medicine for the last two nights. [facility] Medical History (Updated 03/02/25 @ 10:43 by Yane Magana PA-C) Skin lesion of back Pain in left foot COVID-19 vaccine dose declined Impaired fasting glucose History of COVID-19 History of anxiety disorder Mild intermittent asthma Morbid obesity with BMI of 45.0-49.9, adult Dyslipidemia Essential hypertension Surgical History History of skin cancer History of incision and drainage History of hemorrhoidectomy History of surgery Family History Father Myocardial infarction, Onset Age: 49 Emphysema lung Mother Essential hypertension Hyperlipidemia Sister Breast cancer, Onset Age: 58 Maternal Aunt Breast cancer Social History Housing: House Patient Tobacco Use Status: Never used Tobacco e-Cigarette/Vaping Use: Never Used service: No Current occupational status: employed Cognitive needs: No Hearing needs: No Vision needs: Yes Review of Systems Narrative Review of Systems - Constitutional: Reports subjective chills and feeling cold. Denies measured fever. - HEENT: Reports an intermittent sore throat for one week and a sensation of facial flushing. Reports swelling on the left side of the neck. Denies sinus pain or ear pain. - Respiratory: Reports chest heaviness and nocturnal cough. Denies trouble breathing, shortness of breath, or wheezing on a routine basis. All systems reviewed and are unremarkable except as noted in HPI Physical Exam Exam Exam: Physical Exam General: Cooperative, healthy appearing, comfortable and no acute distress Orientation/consciousness: Patient oriented x3 Limitations: No limitations Head: Normal to inspection Ears: Hearing grossly normal bilaterally, external ears normal, EAC's normal bilaterally and TM's normal bilaterally Nose: Normal external nose present, Normal nares present and No nasal discharge present Face and sinus: Normal facial exam and sinuses nontender Mouth: Normal oral and palatal mucosa present and moist mucous membranes Throat: Tonsils with erythema, no exudates, uvula midline, posterior oropharynx erythema Eyes: Appearance normal, both eyes and all related structures Neck: Normal visual inspection, full ROM, a little bit of swelling on the left side Respiratory: Clear to auscultation bilaterally. Normal respiratory effort, able to speak in complete sentences, actively coughing, no respiratory distress, not tachypneic, no tripod positioning and no use of accessory muscles Cardiovascular: Regular rate and rhythm. Normal S1 and S2 Skin: No rashes or lesions noted Neuro: Patient oriented x3 Extremities: Normal to inspection and Yes no clubbing, cyanosis or edema Vital Signs: Last Vital Signs Temp 98.3 F 03/02/25 10:33 Pulse 76 03/02/25 10:33 BP 136/80 03/02/25 10:33 Pulse Ox 95 03/02/25 10:33 Oxygen Delivery Method Room Air 03/02/25 10:33 BMI result Body Mass Index 45.9 Assessment & Plan Assessment & Plan (1) URI, acute: Code(s): J06.9 - Acute upper respiratory infection, unspecified Plan: Plan Patient was informed and verbally consented to the use of an ambient scribe for clinic note documentation during this visit. - VSS, pt well appearing and PE unremarkable. - The current illness is most likely viral, given the prevalence of rhinovirus and enterovirus, and antibiotics are not indicated. - For symptomatic relief of the sore throat, the patient was advised to use hot tea with honey and ibuprofen. - The patient was counseled to check the active ingredients of Coricidin to avoid taking additional NSAIDs with ibuprofen. - It was recommended that the patient use an albuterol inhaler every four to six hours for the next few days to help open the airways and relieve the chest pressure. - For the nocturnal cough, the patient can continue using [id number] Delsym, as it has been effective. - The patient was advised to continue using Coricidin for symptomatic relief. - A nasal swab was collected to test for influenza, COVID-19, and RSV. - If the COVID-19 test is positive, the patient is outside the treatment window for Paxlovid. Orders: Orders SARS-CoV2/FLU/RSV Today J06.9 - Acute upper respiratory infection, unspecified Coding Level of Care Code Est Pt Level 3 (81894) Diagnoses URI, acute J06.9
[2025-03-02 10:33] VITALS: BP 136/80; PULSE 76; TEMP 36.8; O2SAT 95; BMI 45.9
== END 2025-03-02 10:55 | disposition home or self-care (01) ==
PROVIDERS: PCP Internal Medicine; Visit Provider Physician Assistant
DX: J06.9 Acute upper respiratory infection, unspecified (principal)

== ENCOUNTER 2025-03-02 10:14 | Outpatient (REF) | payer OTHER, SELFPAY ==
[2025-03-02 13:37] LABS: Resp Syncy Virus RNA Qual PCR NEGATIVE (Negative); SARS COV2 PCR INHOUSE NEGATIVE (Negative)
== END 2025-03-02 10:15 | disposition home or self-care (01) ==
LOC: HO.LAB 10:14
PROVIDERS: Physician Assistant; PCP Internal Medicine
DX: J06.9 Acute upper respiratory infection, unspecified (principal)
CPT/HCPCS: 87637; 99212